=== PATIENT | female | born 1940 | race Caucasian/White ===

== ENCOUNTER 2016-07-22 08:00 | Outpatient (RCR) | payer MEDICARE ==
[~2016-07-22 08:00] MED LIST: ESTR0.5T; FLEC50TA PO; LEVO100T7
== END 2016-10-20 | disposition home or self-care (01) ==
LOC: CARD 08:00
PROVIDERS: ATTEND Internal Medicine
DX: R00.2 Palpitations (principal)
CPT/HCPCS: 93225; 93226

== ENCOUNTER 2016-07-22 15:23 | Outpatient (RCR) | payer MEDICARE | END 2016-10-20 | disposition home or self-care (01) | LOC: CARD 15:23 | PROVIDERS: ATTEND Internal Medicine | DX: R00.2 Palpitations (principal) ==

== ENCOUNTER 2016-10-25 16:44 | Emergency (ER) | payer MEDICARE ==
[~2016-10-25] VITALS: Ht 160 cm; Wt 59.0 kg
--- NOTE | 2016-10-25 17:16 | ED Chest Pain ---
General Chief Complaint: Chest Pain Stated Complaint: CHEST DISCOMFORT X4 DAYS Nursing Triage Note: CHEST PAIN X4 DAYS. STATES SHE THINKS IT MIGHT BE INDIGESTION OR RELATED TO HER NEW MEDS. Nursing Sepsis Screen: No Definite Risk Source: patient Exam Limitations: no limitations History of Present Illness Time seen by provider: 17:13 Initial Comments Patient presents the ER by private conveyance that she complaint of several days now progressively worsening midline substernal chest pain that is quite severe and intermittent. It is not presently happening but she spoke with her doctor who recommended she come to the ER. She is recently diagnosed a few weeks ago with atrial fibrillation and started on eliquis but she could only tolerate about 3-4 days of that and was switched over to pradaxa. She used to be on aspirin but that was stopped when she was switched to eliquis. Patient says sometimes her breath taken away but she is not short of breath nauseated having any chills numbness in her neck arms shoulder or face. She does have chronic numbness in her left thumb but comes and goes. She is associating her chest pain with possible indigestion however it is nothing in relation to her eating habits. She has not tried taking anything for it. She does not know if lying still makes it go away as it usually goes away on its own. She was recently started on doxycycline by her network operations technician after she had a skin cancer cut off about a week ago. She did not take the doxycycline today. After reading on the Internet now she is convinced the Pradaxa is causing her chest pain. She called discussed this with her quality control assistant and they recommended she come to the ER promptly. Allergies and Home Medications Allergies Coded Allergies: No Known Drug Allergies (Unverified , 05/25/15) Home Medications Estradiol 0.5 Mg Tablet, #90 (Reported) Levothyroxine Sodium 100 Mcg Tablet, #90 (Reported) Review of Systems Constitutional: No chills, No diaphoresis, No fever Respiratory: Denies Cough, Shortness of Air, Denies Wheezing Cardiovascular: See HPI, Chest Pain, Denies Edema, Denies Irregular Heart Rate Gastrointestinal: Denies Abdominal Pain, Denies Diarrhea, Denies Nausea, Denies Vomiting Genitourinary: Denies Burning Musculoskeletal: No back pain, No joint pain Skin: No pruritus, No rash Psychiatric/Neurological: Denies Headache, Denies Numbness, Denies Paresthesia Past Kusuanu-Sltanv-Kpqmti Hx Patient Social History Alcohol Use: Occasionally Uses Recreational Drug Use: No Smoking Status: Never a Smoker Recent Foreign Travel: No Contact w/Someone Who Travel: No Recent Infectious Disease Expo: No Surgeries HX Surgeries: Yes Surgeries: Breast, Cardiac, Hysterectomy, Oophorectomy, Orthopedic, Thyroidectomy, Tubal Ligation Respiratory Hx Respiratory Disorders: No Cardiovascular Hx Cardiac Disorders: Yes (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) Cardiac Disorders: Atrial Fibrillation, Hypertension, Irregular Heartbeat, Palpitations Neurological Hx Neurological Disorders: No 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, 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 Genitourinary Hx Genitourinary Disorders: No Gastrointestinal Hx Gastrointestinal Disorders: No Musculoskeletal Hx Musculoskeletal Disorders: Yes Musculoskeletal Disorders: Rheumatoid Arthritis Endocrine Hx Endocrine Disorders: Yes (S/P PARTIAL THYROIDECTOMY FOR BENIGN GROWTH) Endocrine Disorders: Hypothyroidsim HEENT HX ENT Disorders: No Cancer Hx Cancer: No Psychosocial Hx Psychiatric Problems: No Integumentary HX Skin/Integumentary Disorder: No Blood Transfusions Hx Blood Disorders: No Physical Exam Vital Signs Vital Sign - Last 12Hours 10/25/16 16:45 Temp 98.0 Pulse 54 Resp 16 B/P (MAP) 141/90 Pulse Ox 98 Capillary Refill : Less Than 3 Seconds General Appearance: No Apparent Distress, WD/WN HEENT: PERRL/EOMI, Pharynx Normal Neck: Full Range of Motion, Supple Respiratory: Chest Non Tender, Lungs Clear, Normal Breath Sounds Cardiovascular: Regular Rate, Rhythm, No Edema, No Gallop, No JVD, Normal Peripheral Pulses Gastrointestinal: Normal Bowel Sounds, Non Tender, Soft Extremity: Normal Capillary Refill, No Pedal Edema Neurologic/Psychiatric: Alert, Oriented x3 Skin: Normal Color, Warm/Dry Progress/Results/Core Measures Results/Orders Lab Results Laboratory Tests Test 10/25/16 17:15 Range/Units White Blood Count 5.6 4.3-11.0 10^3/uL Red Blood Count 3.40 L 4.35-5.85 10^6/uL Hemoglobin 12.0 11.5-16.0 G/DL Hematocrit 36 35-52 % Mean Corpuscular Volume 104 H 80-99 FL Mean Corpuscular Hemoglobin 35 H 25-34 PG Mean Corpuscular Hemoglobin Concent 34 32-36 G/DL Red Cell Distribution Width 14.3 10.0-14.5 % Platelet Count 214 130-400 10^3/uL Mean Platelet Volume 10.5 H 7.4-10.4 FL Neutrophils (%) (Auto) 72 42-75 % Lymphocytes (%) (Auto) 17 12-44 % Monocytes (%) (Auto) 6 0-12 % Eosinophils (%) (Auto) 4 0-10 % Basophils (%) (Auto) 1 0-10 % Neutrophils # (Auto) 4.0 1.8-7.8 X 10^3 Lymphocytes # (Auto) 1.0 1.0-4.0 X 10^3 Monocytes # (Auto) 0.3 0.0-1.0 X 10^3 Eosinophils # (Auto) 0.2 0.0-0.3 10^3/uL Basophils # (Auto) 0.0 0.0-0.1 10^3/uL Prothrombin Time 16.4 H 12.2-14.7 SEC INR Comment 1.4 0.8-1.4 Activated Partial Thromboplast Time 45 H 24-35 SEC Sodium Level 138 135-145 MMOL/L Potassium Level 4.1 3.6-5.0 MMOL/L Chloride Level 105 98-107 MMOL/L Carbon Dioxide Level 27 21-32 MMOL/L Anion Gap 6 5-14 MMOL/L Blood Urea Nitrogen 23 H 7-18 MG/DL Creatinine 0.78 0.60-1.30 MG/DL Estimat Glomerular Filtration Rate > 60 BUN/Creatinine Ratio 29 Glucose Level 93 70-105 MG/DL Calcium Level 8.8 8.5-10.1 MG/DL Magnesium Level 2.0 1.8-2.4 MG/DL Total Bilirubin 0.5 0.1-1.0 MG/DL Aspartate Amino Transf (AST/SGOT) 20 5-34 U/L Alanine Aminotransferase (ALT/SGPT) 22 0-55 U/L Alkaline Phosphatase 80 40-136 U/L Myoglobin 47.5 10.0-92.0 NG/ML Troponin I < 0.30 <0.30 NG/ML Total Protein 6.6 6.4-8.2 GM/DL Albumin 3.9 3.2-4.5 GM/DL Lipase 24 8-78 U/L Thyroid Stimulating Hormone (TSH) 3.60 0.35-4.94 UIU/ML My Orders Orders - TONY GUADARRAMAg Tracing (10/25/16 16:52) Cbc With Automated Diff (10/25/16 17:16) Magnesium (10/25/16 17:16) Chest 1 View, Ap/Pa Only (10/25/16 17:16) Cardiac Profile 1 (10/25/16 17:16) Comprehensive Metabolic Panel (10/25/16 17:16) Myoglobin Serum (10/25/16 17:16) Protime With Inr (10/25/16 17:16) Partial Thromboplastin Time (10/25/16 17:16) O2 (10/25/16 17:16) Monitor-Rhythm Ecg Trace Only (10/25/16 17:16) Lipid Panel (10/26/16 06:00) Aspirin Chewable Tablet (Baby Aspirin Ch (10/25/16 17:30) Rx-Nitroglycerin Sl Tabs (Rx-Nitrostat S (10/25/16 17:30) Saline Lock/Iv-Start (10/25/16 17:16) Lipase (10/25/16 17:16) Thyroid Stimulating Hormone (10/25/16 17:16) Medications Given in ED Current Medications Medications Dose Ordered Sig/Aylin Route Start Time Stop Time Status Last Admin Dose Admin Aspirin 324 mg ONCE ONCE PO 10/25/16 17:30 10/25/16 17:31 DC 10/25/16 17:21 324 MG Vital Signs/I&O Vital Sign - Last 12Hours 10/25/16 16:45 Temp 98.0 Pulse 54 Resp 16 B/P (MAP) 141/90 Pulse Ox 98 Blood Pressure Mean: 107 Progress Note : Time: 18:32 Progress Note Days of progressive chest pain with a negative troponin and EKG. Follow up next week with her quality control assistant and pcp ECG Initial ECG Impression Date: Oct 25, 2016 Initial ECG Impression Time: 16:59 Initial ECG Rate: 50 Initial ECG Rhythm: Normal Sinus Initial ECG Intervals: Normal Initial ECG Impression: Normal, Nonspecific Changes (incomplete right bundle- branch block) Initial ECG Comparisson: No Previous ECG Available Comment No T-wave elevation or depression. Diagnostic Imaging Diagonstic Imaging: Xray Plain Films/CT/US/NM/MRI: chest Comments No acute cardiopulmonary processes noted. NAME: ANANTH BEEBE REC#: [id number] PT STATUS: REG ER : 1940 PHYSICIAN: TONY GUADARRAMA MD ADMIT DATE: 10/25/16/ER Draft Date of Exam:10/25/16 CHEST 1 VIEW, AP/PA ONLY INDICATION: Chest discomfort. COMPARISON: 05/25/2015. FINDINGS: Chronic interstitial lung disease is again noted. There are no acute infiltrates. The heart remains mildly enlarged. There is no pulmonary edema. No pleural effusion. No hilar adenopathy. No pneumothorax. IMPRESSION: 1. Cardiomegaly with no evidence of congestive failure. 2. Mild chronic interstitial lung disease with no acute infiltrates. Dictated on workstation # [id number] Dict: 10/25/16 1735 Trans: 10/25/168 AS6 [id number] Interpreted by: JAMEY CHUN MD Electronically signed by: Reviewed: Reviewed by Me Departure Impression Impression: Primary Impression: Chest pain Qualified Codes: R07.9 - Chest pain, unspecified Disposition: 01 HOME, SELF-CARE Condition: Stable Departure-Patient Inst. Decision time for Depature: 18:33 Referrals: COURTNEY ALBERTO MD (PCP/Family) Primary Care Physician Patient Instructions: Chest Pain That Is Not Caused by the Heart (DC) Add. Discharge Instructions: Please go home to continue use her same medicines as prescribed by your other doctors and plan on following up with your quality control assistant by calling his clinic Friday morning. Follow up with your PCP as needed. If you're having any new or worsening symptoms such as new characterized chest pain, shortness of breath, nausea or other worrisome symptoms please return to the ER immediately. All discharge instructions reviewed with patient and/or family. Voiced understanding. Copy Copies To 1: COURTNEY ALBERTO MD, TITUS J Oct 25, 2016 17:16
[2016-10-25 17:25] LABS: BASOPHILS % (AUTO) 1 % (0-10); EOSINOPHILS # (AUTO) 0.2 10^3/uL (0.0-0.3); EOSINOPHILS % (AUTO) 4 % (0-10); LYMPHOCYTES % (AUTO) 17 % (12-44); MEAN CORPUSCULAR HEMOGLOBIN 35 PG (25-34); MEAN CORPUSCULAR HGB CONC 34 G/DL (32-36); MEAN CORPUSCULAR VOLUME 104 FL (80-99); MEAN PLATELET VOLUME 10.5 FL (7.4-10.4); MONOCYTES # (AUTO) 0.3 X 10^3 (0.0-1.0); MONOCYTES % (AUTO) 6 % (0-12); NEUTROPHILS % (AUTO) 72 % (42-75); PLATELET COUNT 214 10^3/uL (130-400); RED CELL DISTRIBUTION WIDTH 14.3 % (10.0-14.5); WHITE BLOOD COUNT 5.6 10^3/uL (4.3-11.0)
[2016-10-25] MEDS ORDERED: RX-NITROGLYCERIN 0.4 MG TAB BTL 25'S SL PRN (17:30)
[2016-10-25] MEDS ORDERED: ASPIRIN 81 MG CHEW (CHILDREN'S ASA) PO ONE (17:30)
[2016-10-25 17:34] LABS: INR 1.4 (0.8-1.4); PROTHROMBIN TIME PATIENT 16.4 SEC (12.2-14.7)
--- NOTE | 2016-10-25 17:39 | Diagnostic Imaging Report ---
INDICATION: Chest discomfort. COMPARISON: 05/25/2015. FINDINGS: Chronic interstitial lung disease is again noted. There are no acute infiltrates. The heart remains mildly enlarged. There is no pulmonary edema. No pleural effusion. No hilar adenopathy. No pneumothorax. IMPRESSION: 1. Cardiomegaly with no evidence of congestive failure. 2. Mild chronic interstitial lung disease with no acute infiltrates. Dictated by: Dictated on workstation # [id number]
[2016-10-25 17:45] LABS: ALANINE AMINOTRANSFERASE 22 U/L (0-55); ALBUMIN 3.9 GM/DL (3.2-4.5); ANION GAP 6 MMOL/L (5-14); ASPARTATE AMINO TRANSFERASE 20 U/L (5-34); BILIRUBIN,TOTAL 0.5 MG/DL (0.1-1.0); BLOOD UREA NITROGEN 23 MG/DL (7-18); BUN/CREATININE RATIO 29; CALCIUM 8.8 MG/DL (8.5-10.1); CARBON DIOXIDE 27 MMOL/L (21-32); CHLORIDE 105 MMOL/L (98-107); CREATININE SERUM 0.78 MG/DL (0.60-1.30); GFR ESTIMATED > 60; GLUCOSE 93 MG/DL (70-105); LIPASE 24 U/L (8-78); POTASSIUM 4.1 MMOL/L (3.6-5.0); SODIUM 138 MMOL/L (135-145); TOTAL PROTEIN 6.6 GM/DL (6.4-8.2)
[2016-10-25 17:52] LABS: MYOGLOBIN SERUM 47.5 NG/ML (10.0-92.0)
[2016-10-25 18:39] VITALS: BP 127/85
== END 2016-10-25 18:39 | disposition home or self-care (01) ==
LOC: EDUNIT# 16:44 → ER 16:45
DX: R07.2 Precordial pain (principal); I48.91 Unspecified atrial fibrillation; E03.9 Hypothyroidism, unspecified; M06.9 Rheumatoid arthritis, unspecified; I10 Essential (primary) hypertension; Z90.710 Acquired absence of both cervix and uterus; Z98.51 Tubal ligation status; Z98.890 Other specified postprocedural states; Z85.828 Personal history of other malignant neoplasm of skin; Z79.01 Long term (current) use of anticoagulants
CPT/HCPCS: 36415; 71010; 80053; 83690; 83735; 83874; 84443; 84484; 85025; 85610; 85730; 93041

== ENCOUNTER → 2016-12-10 | Outpatient (CLI) | payer MEDICARE | LOC: CARD 08:57 | PROVIDERS: ATTEND Internal Medicine Cardiovascular Disease | DX: I48.0 Paroxysmal atrial fibrillation (principal); I47.1 Supraventricular tachycardia | CPT/HCPCS: 93306; 93351 ==

== ENCOUNTER → 2018-05-05 | Outpatient (CLI) | payer MEDICARE ==
--- NOTE | 2018-05-05 08:56 | Diagnostic Imaging Report ---
EXAM: LUMBAR SPINE - 2-3 VIEWS INDICATION: LOW BACK PAIN, SI JOINT PAIN COMPARISON: None. FINDINGS: There are 5 lumbar type vertebral bodies with tiny riblets at the T12 segment for the purposes of this report. Mild left apex lumbar curvature centered at L2. Alignment is otherwise unremarkable. Moderate to advanced degenerative endplate changes are greatest at L1-L2 and L5-S1. Moderate facet arthropathy is greatest at L5-S1. Vertebral body heights are preserved. No fractures. The visualized sacrum is intact. IMPRESSION: Moderate to advanced spondylotic changes in the lumbar spine as above. No acute radiographic findings. Dictated by: Dictated on workstation # [id number]
--- NOTE | 2018-05-05 10:15 | Diagnostic Imaging Report ---
INDICATION: LOW BACK PAIN, SI JOINT PAIN. TECHNIQUE: Single frontal view of the pelvis. COMPARISON: None FINDINGS: No acute fracture or dislocation is seen on this single view of the pelvis. Alignment appears normal. Joint spaces are preserved. The sacroiliac joints and pubic symphysis are patent. No cortical erosions are seen. IMPRESSION: No acute osseous abnormality is seen in the pelvis. Dictated by: Dictated on workstation # [id number]
== END ==
LOC: RAD 08:23
PROVIDERS: ATTEND Physician Assistant
DX: M47.817 Spondylosis without myelopathy or radiculopathy, lumbosacral region (principal); M53.3 Sacrococcygeal disorders, not elsewhere classified
CPT/HCPCS: 72100; 72170

== ENCOUNTER → 2018-09-29 | Outpatient (CLI) | payer MEDICARE ==
--- NOTE | 2018-09-29 13:33 | Diagnostic Imaging Report ---
INDICATION: Hand pain. FINDINGS: The bones are osteopenic. There are moderate osteoarthritic changes of the radiocarpal joint and midcarpal joints bilaterally. There is no fracture or dislocation. There are no marginal erosions. The DIP and PIP joint spaces are relatively well maintained. There is some mild subluxation along the metacarpophalangeal joints. IMPRESSION: Nonspecific subluxation along the metacarpophalangeal joints likely chronic. Marked degenerative changes of the radiocarpal joint and midcarpal joints. Osteopenia however no fracture or dislocation. Additionally, there are no marginal erosions. Dictated by: Dictated on workstation # [id number]
== END ==
LOC: RAD 12:54
PROVIDERS: ATTEND Internal Medicine Rheumatology
DX: S63.219A Subluxation of metacarpophalangeal joint of unspecified finger, initial encounter (principal); M19.041 Primary osteoarthritis, right hand; M19.042 Primary osteoarthritis, left hand; M85.849 Other specified disorders of bone density and structure, unspecified hand; M05.79 Rheumatoid arthritis with rheumatoid factor of multiple sites without organ or systems involvement

== ENCOUNTER 2018-12-03 10:46 | Outpatient (RCR) | payer MEDICARE | END 2018-12-09 14:14 | disposition home or self-care (01) | DX: M06.9 Rheumatoid arthritis, unspecified (principal) ==

== ENCOUNTER 2020-06-03 13:59 | Emergency (ER) | payer MEDICARE ==
[~2020-06-03] VITALS: Ht 167.7 cm; Wt 51.7 kg
--- NOTE | 2020-06-03 14:27 | ED Cardiac General ---
History of Present Illness General Chief Complaint: Cardiac/General Problems Stated Complaint: A-FIB EPISODE Nursing Triage Note: PT AMBULATE TO ROOM 05 WITH C/O AFIB STARTING THIS AM. PT REPORTS HX OF AFIB. PT DENIES CHEST PAIN. PT REPORTS BEING "WORE OUT". Source: patient Exam Limitations: no limitations History of Present Illness Date Seen by Provider: Jun 03, 2020 Time Seen by Provider: 14:01 Initial Comments Patient arrives ER by private conveyance from home with chief complaint that since about 9:00 this morning she started having some of tiredness a little bit of shortness of air. No chest pain. She has an negro on her phone and told her the might be atrial fibrillation. She has a history of atrial fibrillation on Pradaxa and denies a history of heart attack or stent. She follows with Dr. Fabian at [facility] and primary care by Dr. Castro. She is not having any nausea sweats chills or exertional dyspnea. She says she has just felt tired all morning. Allergies and Home Medications Allergies Coded Allergies: No Known Drug Allergies (Unverified , 05/25/15) Patient Home Medication List Home Medication List Reviewed: Yes Review of Systems Review of Systems Constitutional: No chills, No diaphoresis EENTM: No Blurred Vision, No Double Vision Respiratory: Denies Cough; Shortness of Air; Denies SOA With Exertion Cardiovascular: Denies Chest Pain, Denies Lightheadedness Gastrointestinal: Denies Constipated, Denies Diarrhea, Denies Nausea Genitourinary: Denies Burning, Denies Discharge, Denies Drainage Musculoskeletal: No back pain, No joint pain All Other Systems Reviewed Negative Unless Noted: Yes Past Pbmzwgk-Qpttoc-Rqhmhz Hx Patient Social History Alcohol Use: Regular Use Number of Drinks Today: Alcohol Beverage of Choice: Wine Smoking Status: Never a Smoker Recent Infectious Disease Expo: No Past Medical History Surgeries: Yes Breast, Cardiac, Hysterectomy, Oophorectomy, Orthopedic, Thyroidectomy, Tubal Ligation Respiratory: No Cardiac: Yes (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) Atrial Fibrillation, Hypertension, Irregular Heartbeat, Palpitations Neurological: No 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 oz. 58.403457bo; 18.00 BMI Method:Estimated General Appearance: No Apparent Distress, WD/WN HEENT: PERRL/EOMI, Pharynx Normal, Moist Mucous Membranes Neck: Full Range of Motion, Normal Inspection Respiratory: Chest Non Tender, Lungs Clear, Normal Breath Sounds, No Accessory Muscle Use, No Respiratory Distress Cardiovascular: Regular Rate, Rhythm, No Edema, No Gallop, No JVD, No Murmur, Normal Peripheral Pulses Extremity: Normal Capillary Refill, Normal Inspection Neurologic/Psychiatric: Alert, Oriented x3 Skin: Normal Color, Warm/Dry Progress/Results/Core Measures Results/Orders Lab Results Laboratory Tests Test 06/03/20 14:23 06/03/20 16:07 Range/Units White Blood Count 5.0 4.3-11.0 10^3/uL Red Blood Count 4.34 3.80-5.11 10^6/uL Hemoglobin 14.4 11.5-16.0 g/dL Hematocrit 42 35-52 % Mean Corpuscular Volume 98 80-99 fL Mean Corpuscular Hemoglobin 33 25-34 pg Mean Corpuscular Hemoglobin Concent 34 32-36 g/dL Red Cell Distribution Width 11.8 10.0-14.5 % Platelet Count 226 130-400 10^3/uL Mean Platelet Volume 9.7 9.0-12.2 fL Immature Granulocyte % (Auto) 0 % Neutrophils (%) (Auto) 58 42-75 % Lymphocytes (%) (Auto) 24 12-44 % Monocytes (%) (Auto) 9 0-12 % Eosinophils (%) (Auto) 8 0-10 % Basophils (%) (Auto) 1 0-10 % Neutrophils # (Auto) 2.9 1.8-7.8 10^3/uL Lymphocytes # (Auto) 1.2 1.0-4.0 10^3/uL Monocytes # (Auto) 0.5 0.0-1.0 10^3/uL Eosinophils # (Auto) 0.4 H 0.0-0.3 10^3/uL Basophils # (Auto) 0.0 0.0-0.1 10^3/uL Immature Granulocyte # (Auto) 0.0 0.0-0.1 10^3/uL Prothrombin Time 17.6 H 12.2-14.7 SEC INR Comment 1.4 0.8-1.4 Activated Partial Thromboplast Time 55 H 24-35 SEC Sodium Level 139 135-145 MMOL/L Potassium Level 4.1 3.6-5.0 MMOL/L Chloride Level 106 98-107 MMOL/L Carbon Dioxide Level 21 21-32 MMOL/L Anion Gap 12 5-14 MMOL/L Blood Urea Nitrogen 18 7-18 MG/DL Creatinine 0.82 0.60-1.30 MG/DL Estimat Glomerular Filtration Rate > 60 BUN/Creatinine Ratio 22 Glucose Level 147 H 70-105 MG/DL Calcium Level 8.4 L 8.5-10.1 MG/DL Corrected Calcium 8.4 L 8.5-10.1 MG/DL Magnesium Level 3.2 H 1.6-2.4 MG/DL Total Bilirubin 0.2 0.1-1.0 MG/DL Aspartate Amino Transf (AST/SGOT) 26 5-34 U/L Alanine Aminotransferase (ALT/SGPT) 23 0-55 U/L Alkaline Phosphatase 109 40-136 U/L Myoglobin 29.2 10.0-92.0 NG/ML Troponin I < 0.028 < 0.028 <0.028 NG/ML Total Protein 7.2 6.4-8.2 GM/DL Albumin 4.0 3.2-4.5 GM/DL My Orders Orders - CHIARA,TONY J Cbc With Automated Diff (06/03/20 14:19) Magnesium (06/03/20 14:19) Chest 1 View, Ap/Pa Only (06/03/20 14:19) Ekg Tracing (06/03/20 14:19) Comprehensive Metabolic Panel (06/03/20 14:19) Myoglobin Serum (06/03/20 14:19) Protime With Inr (06/03/20 14:19) Partial Thromboplastin Time (06/03/20 14:19) O2 (06/03/20 14:19) Monitor-Rhythm Ecg Trace Only (06/03/20 14:19) Lipid Panel (06/04/20 06:00) Ed Iv/Invasive Line Start (06/03/20 14:19) Troponin I (06/03/20 14:19) Aspirin Chewable Tablet (Baby Aspirin Ch (06/03/20 14:30) Troponin I (06/03/20 16:00) Medications Given in ED Current Medications Medications Dose Ordered Sig/Aylin Route Start Time Stop Time Status Last Admin Dose Admin Aspirin 324 mg ONCE ONCE PO 06/03/20 14:30 06/03/20 14:31 DC 06/03/20 14:26 324 MG Vital Signs/I&O 06/03/20 14:06 Temp 36.0 Pulse 82 Resp 18 B/P (MAP) 111/83 (92) O2 Delivery Room Air Blood Pressure Mean: 92 Progress Progress Note : Time: 14:28 Progress Note She is not in any kind of tachyarrhythmia. Heart rate around the 80s. She is in an atrial fibrillation. It is reasonable to consider an atypical angina so we will give her some aspirin to chew and swallow and to a serial troponin in 2 hours which will be greater than 6 hours after start of symptoms. Initial ECG Impression Date: Jun 03, 2020 Initial ECG Impression Time: 14:11 Initial ECG Rate: 81 Initial ECG Rhythm: A Fib/Flutter Initial ECG Intervals: QT (429) Initial ECG Impression: Atrial Fibrillation Comment Atrial fibrillation without rapid ventricular response. No clinically relevant ST elevation or depression. Diagnostic Imaging Diagonstic Imaging: Xray Plain Films/CT/US/NM/MRI: chest Comments NAME: ANANTH BEEBE [facility] REC#: [id number] PT STATUS: REG ER : 1940 PHYSICIAN: TONY GUADARRAMA MD ADMIT DATE: 06/03/20/ER Draft Date of Exam:06/03/20 CHEST 1 VIEW, AP/PA ONLY Portable erect AP chest at 2:37. Indication: Chest pain The heart size is within normal limits and stable when compared to 10/25/2016. The lungs remain clear. There is still no sign of failure, pneumonia or pleural effusion. The chronic pulmonary changes involving the lung apices seen previously are again evident and no different. The mediastinum is not widened. The osseous structures are intact. Impression: There is no evidence for active disease. Dictated on workstation # [id number] Dict: 06/03/20 1444 Trans: 06/03/20 1454 CV [id number] Interpreted by: MICHAEL WATTS MD Electronically signed by: Reviewed: Reviewed by Me Consults : Consulting Physician: Alpa DUNAWAY MD Consults Notes Discussed the case with cardiology and he recommends rule out troponin. If this is okay he would have her follow-up with cardiology outpatient. Departure Impression Primary Impression: Atrial fibrillation Qualified Codes: I48.0 - Paroxysmal atrial fibrillation Additional Impression: Malaise Disposition: HOME, SELF-CARE Condition: Stable Departure-Patient Inst. Decision time for Depature: 16:48 Referrals: COURTNEY CASTRO MD (PCP/Family) Primary Care Physician Patient Instructions: Medicines for Atrial Fibrillation, Atrial Fibrillation, Generalized Weakness Add. Discharge Instructions: Friday morning call your director information security Dr. Fabian and request follow-up appointment. Return to the nearest ER promptly if you experience chest pain, intractable nausea or other worrisome symptoms. Continue taking your medications as prescribed. All discharge instructions reviewed with patient and/or family. Voiced understanding. TONY GUADARRAMA Jun 03, 2020 14:27
[2020-06-03] MEDS ORDERED: ASPIRIN 81 MG CHEW (CHILDREN'S ASA) PO ONE (14:30)
[2020-06-03 14:31] LABS: BASOPHILS % (AUTO) 1 % (0-10); EOSINOPHILS # (AUTO) 0.4 10^3/uL (0.0-0.3); EOSINOPHILS % (AUTO) 8 % (0-10); HEMATOCRIT 42 % (35-52); HEMOGLOBIN 14.4 g/dL (11.5-16.0); LYMPHOCYTES # (AUTO) 1.2 10^3/uL (1.0-4.0); LYMPHOCYTES % (AUTO) 24 % (12-44); MEAN CORPUSCULAR HEMOGLOBIN 33 pg (25-34); MEAN CORPUSCULAR HGB CONC 34 g/dL (32-36); MEAN CORPUSCULAR VOLUME 98 fL (80-99); MEAN PLATELET VOLUME 9.7 fL (9.0-12.2); MONOCYTES # (AUTO) 0.5 10^3/uL (0.0-1.0); MONOCYTES % (AUTO) 9 % (0-12); NEUTROPHILS # (AUTO) 2.9 10^3/uL (1.8-7.8); NEUTROPHILS % (AUTO) 58 % (42-75); PLATELET COUNT 226 10^3/uL (130-400)
[2020-06-03 14:43] LABS: INR 1.4 (0.8-1.4); PROTHROMBIN TIME PATIENT 17.6 SEC (12.2-14.7)
[2020-06-03 14:52] LABS: ALANINE AMINOTRANSFERASE 23 U/L (0-55); ALKALINE PHOSPHATASE 109 U/L (40-136); BILIRUBIN,TOTAL 0.2 MG/DL (0.1-1.0); BUN/CREATININE RATIO 22; CALCIUM 8.4 MG/DL (8.5-10.1); CARBON DIOXIDE 21 MMOL/L (21-32); CHLORIDE 106 MMOL/L (98-107); CREATININE SERUM 0.82 MG/DL (0.60-1.30); GFR ESTIMATED > 60; GLUCOSE 147 MG/DL (70-105); MAGNESIUM 3.2 MG/DL (1.6-2.4); POTASSIUM 4.1 MMOL/L (3.6-5.0); SODIUM 139 MMOL/L (135-145); TOTAL PROTEIN 7.2 GM/DL (6.4-8.2)
--- NOTE | 2020-06-03 14:56 | Diagnostic Imaging Report ---
Portable erect AP chest at 2:37. Indication: Chest pain The heart size is within normal limits and stable when compared to 10/25/2016. The lungs remain clear. There is still no sign of failure, pneumonia or pleural effusion. The chronic pulmonary changes involving the lung apices seen previously are again evident and no different. The mediastinum is not widened. The osseous structures are intact. Impression: There is no evidence for active disease. Dictated by: Dictated on workstation # [id number]
[2020-06-03 17:02] VITALS: BP 97/63
== END 2020-06-03 17:02 | disposition home or self-care (01) ==
LOC: EDUNIT# 13:59 → ER 14:00
DX: I48.91 Unspecified atrial fibrillation (principal); R53.81 Other malaise
CPT/HCPCS: 36415; 71045; 80053; 83735; 83874; 84484; 85025; 85610; 85730; 93005; 93041

== ENCOUNTER 2020-08-01 23:35 | Emergency (ER) | payer MEDICARE ==
[~2020-08-01] VITALS: Ht 167.7 cm; Wt 50.8 kg
[2020-08-02 00:03] LABS: BASOPHILS % (AUTO) 1 % (0-10); EOSINOPHILS # (AUTO) 0.3 10^3/uL (0.0-0.3); EOSINOPHILS % (AUTO) 6 % (0-10); HEMATOCRIT 42 % (35-52); HEMOGLOBIN 13.9 g/dL (11.5-16.0); LYMPHOCYTES # (AUTO) 1.6 10^3/uL (1.0-4.0); LYMPHOCYTES % (AUTO) 32 % (12-44); MEAN CORPUSCULAR HEMOGLOBIN 33 pg (25-34); MEAN CORPUSCULAR HGB CONC 33 g/dL (32-36); MEAN CORPUSCULAR VOLUME 99 fL (80-99); MEAN PLATELET VOLUME 9.6 fL (9.0-12.2); MONOCYTES # (AUTO) 0.4 10^3/uL (0.0-1.0); MONOCYTES % (AUTO) 8 % (0-12); NEUTROPHILS # (AUTO) 2.7 10^3/uL (1.8-7.8); NEUTROPHILS % (AUTO) 54 % (42-75); PLATELET COUNT 199 10^3/uL (130-400); WHITE BLOOD COUNT 4.9 10^3/uL (4.3-11.0)
[2020-08-02 00:13] LABS: ALBUMIN 4.3 GM/DL (3.2-4.5); CHLORIDE 104 MMOL/L (98-107); POTASSIUM 3.7 MMOL/L (3.6-5.0); SODIUM 139 MMOL/L (135-145)
[2020-08-02 00:15] LABS: CALCIUM 8.5 MG/DL (8.5-10.1)
[2020-08-02 00:16] LABS: GLUCOSE 103 MG/DL (70-105); TOTAL PROTEIN 7.6 GM/DL (6.4-8.2)
[2020-08-02 00:17] LABS: CARBON DIOXIDE 23 MMOL/L (21-32)
[2020-08-02 00:18] LABS: BILIRUBIN,TOTAL 0.2 MG/DL (0.1-1.0)
[2020-08-02 00:19] LABS: ALKALINE PHOSPHATASE 104 U/L (40-136); CREATININE SERUM 0.78 MG/DL (0.60-1.30); GFR ESTIMATED > 60
[2020-08-02 00:20] LABS: INR 1.2 (0.8-1.4); PROTHROMBIN TIME PATIENT 15.5 SEC (12.2-14.7)
[2020-08-02 00:21] LABS: BUN/CREATININE RATIO 28
[2020-08-02 00:22] LABS: ALANINE AMINOTRANSFERASE 24 U/L (0-55); MAGNESIUM 2.1 MG/DL (1.6-2.4)
--- NOTE | 2020-08-02 02:38 | ED Cardiac General ---
History of Present Illness General Chief Complaint: Cardiac/General Problems Stated Complaint: A-FIB Nursing Triage Note: PRESENTS TO ROOM #2 VIA POV W/CO PALPITATIONS. STATES AT 2210 SHE BEGAN TO EXPERIENCE PALPITATIONS AND HER PHONE ALARMED HER THAT SHE WAS IN A-FIB. DENIES CHEST PAIN, DISCOMFORT OR SOA. Source: patient, old records Exam Limitations: no limitations History of Present Illness Date Seen by Provider: August 01, 2020 Time Seen by Provider: 23:45 Initial Comments This 79-year-old woman with known history of paroxysmal atrial fibrillation p resents to the emergency room with complaints of palpitations that started around 22:15. She is concerned that she may be in atrial fibrillation again. She is anticoagulated on Pradaxa. She expresses concern that she does not understand when she should be seen for return of atrial fibrillation and when she should simply follow-up as an outpatient. She denies any chest pain or s hortness of breath. She has a scheduled follow-up with her log carrier operator, Dr. Frederick, in [place] in September. She is seen every 6 months. Patient is confirmed to be in rate controlled atrial fibrillation on EKG and monitor. Allergies and Home Medications Allergies Coded Allergies: No Known Drug Allergies (Unverified , 05/25/15) Patient Home Medication List Home Medication List Reviewed: Yes Review of Systems Review of Systems Constitutional: no symptoms reported EENTM: No Symptoms Reported Respiratory: No Symptoms Reported Cardiovascular: See HPI Gastrointestinal: No Symptoms Reported Genitourinary: No Symptoms Reported Musculoskeletal: no symptoms reported Skin: no symptoms reported Psychiatric/Neurological: No Symptoms Reported Endocrine: No Symptoms Reported Hematologic/Lymphatic: No Symptoms Reported Past Icogogt-Wlxfck-Exrxmw Hx Past Med/Social Hx: Reviewed Nursing Past Med/Soc Hx Patient Social History Alcohol Use: Regular Use Number of Drinks Today: 1 Alcohol Beverage of Choice: Wine Smoking Status: Never a Smoker 2nd Hand Smoke Exposure: No Recent Infectious Disease Expo: No Past Medical History Surgeries: Yes Breast, Cardiac, Hysterectomy, Oophorectomy, Orthopedic, Thyroidectomy, Tubal Ligation Respiratory: No Cardiac: Yes (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) Atrial Fibrillation, Hypertension, Irregular Heartbeat, Palpitations 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 oz. [id number]; 18.00 BMI Method:Estimated General Appearance: No Apparent Distress, WD/WN, Thin HEENT: PERRL/EOMI, Normal ENT Inspection Neck: Normal Inspection; No JVD Respiratory: Lungs Clear, Normal Breath Sounds, No Accessory Muscle Use Cardiovascular: No Edema, No Murmur, Irregularly Irregular Gastrointestinal: Non Tender, Soft; No Distended Extremity: Normal Inspection, No Pedal Edema Neurologic/Psychiatric: Alert, Oriented x3, Normal Mood/Affect Skin: Normal Color, Warm/Dry Progress/Results/Core Measures Results/Orders Lab Results Laboratory Tests Test 08/01/20 23:50 Range/Units White Blood Count 4.9 4.3-11.0 10^3/uL Red Blood Count 4.23 3.80-5.11 10^6/uL Hemoglobin 13.9 11.5-16.0 g/dL Hematocrit 42 35-52 % Mean Corpuscular Volume 99 80-99 fL Mean Corpuscular Hemoglobin 33 25-34 pg Mean Corpuscular Hemoglobin Concent 33 32-36 g/dL Red Cell Distribution Width 11.7 10.0-14.5 % Platelet Count 199 130-400 10^3/uL Mean Platelet Volume 9.6 9.0-12.2 fL Immature Granulocyte % (Auto) 0 % Neutrophils (%) (Auto) 54 42-75 % Lymphocytes (%) (Auto) 32 12-44 % Monocytes (%) (Auto) 8 0-12 % Eosinophils (%) (Auto) 6 0-10 % Basophils (%) (Auto) 1 0-10 % Neutrophils # (Auto) 2.7 1.8-7.8 10^3/uL Lymphocytes # (Auto) 1.6 1.0-4.0 10^3/uL Monocytes # (Auto) 0.4 0.0-1.0 10^3/uL Eosinophils # (Auto) 0.3 0.0-0.3 10^3/uL Basophils # (Auto) 0.0 0.0-0.1 10^3/uL Immature Granulocyte # (Auto) 0.0 0.0-0.1 10^3/uL Prothrombin Time 15.5 H 12.2-14.7 SEC INR Comment 1.2 0.8-1.4 Activated Partial Thromboplast Time 45 H 24-35 SEC Sodium Level 139 135-145 MMOL/L Potassium Level 3.7 3.6-5.0 MMOL/L Chloride Level 104 98-107 MMOL/L Carbon Dioxide Level 23 21-32 MMOL/L Anion Gap 12 5-14 MMOL/L Blood Urea Nitrogen 22 H 7-18 MG/DL Creatinine 0.78 0.60-1.30 MG/DL Estimat Glomerular Filtration Rate > 60 BUN/Creatinine Ratio 28 Glucose Level 103 70-105 MG/DL Calcium Level 8.5 8.5-10.1 MG/DL Corrected Calcium 8.3 L 8.5-10.1 MG/DL Magnesium Level 2.1 1.6-2.4 MG/DL Total Bilirubin 0.2 0.1-1.0 MG/DL Aspartate Amino Transf (AST/SGOT) 31 5-34 U/L Alanine Aminotransferase (ALT/SGPT) 24 0-55 U/L Alkaline Phosphatase 104 40-136 U/L Myoglobin 34.0 10.0-92.0 NG/ML Troponin I < 0.028 <0.028 NG/ML Total Protein 7.6 6.4-8.2 GM/DL Albumin 4.3 3.2-4.5 GM/DL Thyroid Stimulating Hormone (TSH) 2.62 0.35-4.94 UIU/ML Free Thyroxine 1.11 0.70-1.48 NG/DL My Orders Orders - JOSE MARTIN FREITAS MD Cbc With Automated Diff (08/01/20 23:45) Magnesium (08/01/20 23:45) Chest 1 View, Ap/Pa Only (08/01/20 23:45) Comprehensive Metabolic Panel (08/01/20 23:45) Myoglobin Serum (08/01/20 23:45) Protime With Inr (08/01/20 23:45) Partial Thromboplastin Time (08/01/20 23:45) O2 (08/01/20 23:45) Monitor-Rhythm Ecg Trace Only (08/01/20 23:45) Ed Iv/Invasive Line Start (08/01/20 23:45) Troponin I (08/01/20 23:45) Thyroid Stimulating Hormone (08/02/20 02:24) Free T4 (Free Thyroxine) (08/02/20 02:24) Ekg Tracing (08/01/20 23:50) Vital Signs/I&O 08/01/20 08/02/20 23:42 02:45 Temp 36.9 36.9 Pulse 80 78 Resp 17 16 B/P (MAP) 146/93 (110) 122/68 (110) Pulse Ox 98 98 O2 Delivery Room Air Room Air Blood Pressure Mean: 110 Progress Progress Note : Progress Note EKG demonstrated atrial fibrillation. Rate remained controlled throughout her ER visit. Other than palpitations, she was asymptomatic. Labs were unremarkable. I reviewed with patient symptoms for which she should return to the emergency room. She expressed understanding and questions were answered. See discharge instructions for further discussion. Initial ECG Impression Date: August 01, 2020 Initial ECG Impression Time: 23:50 Initial ECG Rate: 83 Initial ECG Rhythm: A Fib/Flutter Initial ECG Impression: Atrial Fibrillation Comment Rate controlled atrial fibrillation with no ST elevation or depression. No abnormal intervals or axis deviation. Diagnostic Imaging Diagonstic Imaging: Xray Plain Films/CT/US/NM/MRI: chest Comments Chest x-ray viewed by me. Report below. NAME: [facility] REC#: [id number] PT STATUS: DEP ER : 1940 PHYSICIAN: JOSE MARTIN FREITAS MD ADMIT DATE: 08/01/20/ER Signed Date of Exam:08/01/20 CHEST 1 VIEW, AP/PA ONLY INDICATION: Chest pain Portable chest 12:04 AM Heart size and pulmonary vascularity are normal. Lungs are clear. There are no effusions or pneumothoraces. IMPRESSION: Negative chest Dictated by: Dictated on workstation # [id number] Dict: 08/02/20 0518 Trans: 08/02/20 1129 [place] [id number] Interpreted by: ANDREW HUDSON MD Electronically signed by: ANDREW HUDSON MD 08/02/20 1129 Departure Impression Primary Impression: Paroxysmal atrial fibrillation Additional Impressions: Palpitations Hypothyroidism Qualified Codes: E03.9 - Hypothyroidism, unspecified Disposition: 01 HOME, SELF-CARE Condition: Stable Departure-Patient Inst. Decision time for Depature: 02:36 Referrals: COURTNEY ALBERTO MD (PCP/Family) Primary Care Physician Patient Instructions: Atrial Fibrillation Add. Discharge Instructions: Continue taking your medications as prescribed. Please contact your log carrier operator's office later today to inform them you are back in atrial fibrillation and to seek further guidance. Return to the emergency room if you have symptoms of cardiac instability which might include chest pain, shortness of breath, lightheadedness, vomiting, etc. Also return to the emergency room if you note your pulse to be consistently less than 50 bpm or faster than 110 bpm at rest. Follow-up on your thyroid studies that were ordered in the ER and discussed with Dr. Alberto. Call with questions or concerns. Return to the ER if you have any other urgent health concerns. All discharge instructions reviewed with patient and/or family. Voiced understanding. Copy Copies To 1: COURTNEY ALBERTO MD, JOSHUA T MD August 02, 2020 02:38
[2020-08-02 02:45] VITALS: BP 122/68
[2020-08-02 03:15] LABS: FREE T4 (FREE THYROXINE) 1.11 NG/DL (0.70-1.48)
--- NOTE | 2020-08-02 05:22 | Diagnostic Imaging Report ---
INDICATION: Chest pain Portable chest 12:04 AM Heart size and pulmonary vascularity are normal. Lungs are clear. There are no effusions or pneumothoraces. IMPRESSION: Negative chest Dictated by: Dictated on workstation # [id number]
== END 2020-08-02 02:45 | disposition home or self-care (01) ==
LOC: EDUNIT# 23:35 → ER 23:37
DX: I48.0 Paroxysmal atrial fibrillation (principal); R00.2 Palpitations; E03.9 Hypothyroidism, unspecified; I10 Essential (primary) hypertension; Z79.890 Hormone replacement therapy; Z79.01 Long term (current) use of anticoagulants; Z79.899 Other long term (current) drug therapy
CPT/HCPCS: 36415; 71045; 80053; 83735; 83874; 84439; 84443; 84484; 85025; 85610; 85730; 93005; 93041

== ENCOUNTER 2021-02-13 16:13 | Outpatient (RCR) | payer MEDICARE | END 2021-03-01 | disposition home or self-care (01) | PROVIDERS: ATTEND Internal Medicine | DX: R32 Unspecified urinary incontinence (principal) ==

== ENCOUNTER 2021-08-04 21:41 | Emergency (ER) | payer MEDICARE ==
[~2021-08-04] VITALS: Ht 167.7 cm; Wt 50.2 kg
[2021-08-04 22:33] LABS: BASOPHILS % (AUTO) 0 % (0-10); EOSINOPHILS % (AUTO) 0 % (0-10); HEMATOCRIT 41 % (35-52); LYMPHOCYTES # (AUTO) 1.6 10^3/uL (1.0-4.0); LYMPHOCYTES % (AUTO) 24 % (12-44); MEAN CORPUSCULAR HEMOGLOBIN 35 pg (25-34); MEAN CORPUSCULAR HGB CONC 34 g/dL (32-36); MEAN CORPUSCULAR VOLUME 102 fL (80-99); MEAN PLATELET VOLUME 9.8 fL (9.0-12.2); MONOCYTES # (AUTO) 0.4 10^3/uL (0.0-1.0); MONOCYTES % (AUTO) 6 % (0-12); NEUTROPHILS # (AUTO) 4.6 10^3/uL (1.8-7.8); NEUTROPHILS % (AUTO) 69 % (42-75); PLATELET COUNT 261 10^3/uL (130-400); WHITE BLOOD COUNT 6.7 10^3/uL (4.3-11.0)
[2021-08-04 22:36] LABS: BILIRUBIN,URINE NEGATIVE (NEGATIVE); CLARITY,URINE CLEAR; COLOR,URINE YELLOW; GLUCOSE, URINE (UA) NEGATIVE (NEGATIVE); KETONES,URINE NEGATIVE (NEGATIVE); LEUKOCYTE ESTERASE ,URINE NEGATIVE (NEGATIVE); NITRITE,URINE NEGATIVE (NEGATIVE); PROTEIN,URINE NEGATIVE (NEGATIVE)
[2021-08-04 22:40] LABS: CALCIUM 9.1 MG/DL (8.5-10.1); CREATININE SERUM 0.77 MG/DL (0.60-1.30); POTASSIUM 3.8 MMOL/L (3.6-5.0)
[2021-08-04 22:43] LABS: BACTERIA,URINE NEGATIVE /HPF; SQUAMOUS EPITHELIAL CELL,UR 0-2 /HPF
[2021-08-04 23:02] LABS: FREE T4 (FREE THYROXINE) 1.13 NG/DL (0.70-1.48)
--- NOTE | 2021-08-04 23:47 | ED Cardiac General ---
History of Present Illness General Chief Complaint: Cardiac/General Problems Stated Complaint: AFIB Nursing Triage Note: PT ARRIVAL TO ER THIS EVENING WITH COMPLAINT OF ATRIAL FIB. PT STATES THAT SHE HAS A MOBILE RAGHAVENDRA ON HER PHONE THAT HAS SHOWN SHE HAS BEEN IN IT SINCE YESTERDAY. PT DENIES CHEST PAIN, SOA, NAUSEA OR OTHER COMPLAINTS. PT STATES THAT SHE JUST DOESN'T FEEL 100% WHEN ATRIAL FIB. PT STATES THAT SHE ALSO TESTED POSITIVE LAST FRIDAY FOR COVID AND HAD ANTIBODIES FRIDAY. Source: patient Exam Limitations: no limitations History of Present Illness Date Seen by Provider: August 04, 2021 Time Seen by Provider: 21:59 Initial Comments This 81-year-old woman presents to the emergency room with complaints of palpitations she has been experiencing increasing episodes of atrial fibrillation recently which has her concerned. She was diagnosed with COVID 19 on July 29. She received monoclonal antibody treatment on July 31. She has had some fatigue but denies any other symptoms. She was tested because she had a known exposure. She denies any chest pain or shortness of breath. Dr. Fabian is her cloth folder machine in [place]. She has comorbidities of hypothyroidism and rheumatoid arthritis. Allergies and Home Medications Allergies Coded Allergies: No Known Drug Allergies (Unverified , 05/25/15) Patient Home Medication List Home Medication List Reviewed: Yes Estradiol (Estradiol Tablet) 0.5 Mg Tablet, (Reported) Entered as Reported by: LONNIE MURRAY on 03/15/16 6425 Levothyroxine Sodium (Levothyroxine Sodium) 100 Mcg Tablet, (Reported) Entered as Reported by: LONNIE MURRAY on 03/15/16 3853 Review of Systems Review of Systems Constitutional: see HPI EENTM: No Symptoms Reported Respiratory: No Symptoms Reported Cardiovascular: See HPI Gastrointestinal: No Symptoms Reported Genitourinary: No Symptoms Reported Musculoskeletal: no symptoms reported Skin: no symptoms reported Psychiatric/Neurological: No Symptoms Reported Endocrine: No Symptoms Reported Hematologic/Lymphatic: No Symptoms Reported Past Krxymbz-Fxotsi-Mavzsm Hx Patient Social History Tobacco Use?: No Use of E-Cig and/or Vaping dev: No Substance use?: No Alcohol Use?: Yes Alcohol type: Wine Alcohol Frequency: Daily Pt feels they are or have been: No Immunizations Up To Date Influenza Vaccine Up-to-Date: No; Not Current Past Medical History Surgeries: Yes Breast, Cardiac, Hysterectomy, Oophorectomy, Orthopedic, Thyroidectomy, Tubal Ligation Respiratory: No Cardiac: Yes (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) Atrial Fibrillation (Paroxysmal), Hypertension, Irregular Heartbeat, Palpitations 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 oz. 58.228513zh; 17.00 BMI Method:Estimated General Appearance: No Apparent Distress, WD/WN, Thin HEENT: Normal ENT Inspection Neck: Normal Inspection Respiratory: Lungs Clear, Normal Breath Sounds, No Accessory Muscle Use Cardiovascular: No Edema, No Murmur, Irregularly Irregular Gastrointestinal: Non Tender, Soft Extremity: Normal Inspection, No Pedal Edema Neurologic/Psychiatric: Alert, Oriented x3, No Motor/Sensory Deficits, Normal Mood/Affect Skin: Normal Color, Warm/Dry Progress/Results/Core Measures Results/Orders Lab Results Laboratory Tests Test 08/04/21 22:02 08/04/21 22:30 Range/Units White Blood Count 6.7 4.3-11.0 10^3/uL Red Blood Count 4.01 3.80-5.11 10^6/uL Hemoglobin 14.0 11.5-16.0 g/dL Hematocrit 41 35-52 % Mean Corpuscular Volume 102 H 80-99 fL Mean Corpuscular Hemoglobin 35 H 25-34 pg Mean Corpuscular Hemoglobin Concent 34 32-36 g/dL Red Cell Distribution Width 13.0 10.0-14.5 % Platelet Count 261 130-400 10^3/uL Mean Platelet Volume 9.8 9.0-12.2 fL Immature Granulocyte % (Auto) 1 % Neutrophils (%) (Auto) 69 42-75 % Lymphocytes (%) (Auto) 24 12-44 % Monocytes (%) (Auto) 6 0-12 % Eosinophils (%) (Auto) 0 0-10 % Basophils (%) (Auto) 0 0-10 % Neutrophils # (Auto) 4.6 1.8-7.8 10^3/uL Lymphocytes # (Auto) 1.6 1.0-4.0 10^3/uL Monocytes # (Auto) 0.4 0.0-1.0 10^3/uL Eosinophils # (Auto) 0.0 0.0-0.3 10^3/uL Basophils # (Auto) 0.0 0.0-0.1 10^3/uL Immature Granulocyte # (Auto) 0.0 0.0-0.1 10^3/uL Sodium Level 140 135-145 MMOL/L Potassium Level 3.8 3.6-5.0 MMOL/L Chloride Level 102 98-107 MMOL/L Carbon Dioxide Level 21 21-32 MMOL/L Anion Gap 17 H 5-14 MMOL/L Blood Urea Nitrogen 25 H 7-18 MG/DL Creatinine 0.77 0.60-1.30 MG/DL Estimat Glomerular Filtration Rate 78 BUN/Creatinine Ratio 32 Glucose Level 100 70-105 MG/DL Calcium Level 9.1 8.5-10.1 MG/DL Magnesium Level 2.0 1.6-2.4 MG/DL Thyroid Stimulating Hormone (TSH) 2.17 0.35-4.94 UIU/ML Free Thyroxine 1.13 0.70-1.48 NG/DL Urine Color YELLOW Urine Clarity CLEAR Urine pH 6.0 5-9 Urine Specific [place] 1.010 L 1.016-1.022 Urine Protein NEGATIVE NEGATIVE Urine Glucose (UA) NEGATIVE NEGATIVE Urine Ketones NEGATIVE NEGATIVE Urine Nitrite NEGATIVE NEGATIVE Urine Bilirubin NEGATIVE NEGATIVE Urine Urobilinogen 0.2 < = 1.0 MG/DL Urine Leukocyte Esterase NEGATIVE NEGATIVE Urine RBC (Auto) TRACE-I H NEGATIVE Urine RBC NONE /HPF Urine WBC NONE /HPF Urine Squamous Epithelial Cells 0-2 /HPF Urine Renal Epithelial Cells NONE /HPF Urine Crystals NONE /LPF Urine Bacteria NEGATIVE /HPF Urine Casts NONE /LPF Urine Mucus NEGATIVE /LPF Urine Culture Indicated NO My Orders Orders - JOSE MARTIN FREITAS MD Ekg Tracing (08/04/21 21:59) Monitor-Rhythm Ecg Trace Only (08/04/21 21:59) Ed Iv/Invasive Line Start (08/04/21 22:14) Basic Metabolic Panel (08/04/21 22:14) Cbc With Automated Diff (08/04/21 22:14) Magnesium (08/04/21 22:14) Thyroid Stimulating Hormone (08/04/21 22:14) Ua Culture If Indicated (08/04/21 22:14) Free T4 (Free Thyroxine) (08/04/21 22:14) Vital Signs/I&O 08/04/21 08/04/21 22:04 23:57 Temp 36.6 Pulse 66 54 Resp 18 18 B/P (MAP) 159/114 (129) 121/81 Pulse Ox 98 99 O2 Delivery Room Air Room Air Blood Pressure Mean: 129 Progress Progress Note : Progress Note Labs were unremarkable. Patient remained in atrial fibrillation during her ER stay. She was noted to have episodes of significant bradycardia with heart rate as low as 46. She had no symptoms associated with this bradycardia such as lightheadedness or shortness of breath. We discussed her treatment regimen with sotalol. I encouraged her to follow-up with her cloth folder machine on Friday to discuss possible medication changes due to her bradycardia. Return precautions were discussed. See discharge instructions. Initial ECG Impression Date: August 04, 2021 Initial ECG Impression Time: 22:04 Initial ECG Rate: 67 Initial ECG Rhythm: A Fib/Flutter Comment Rate controlled atrial fibrillation with no ST elevation or depression. No abnormal intervals or axis deviation. Departure Impression Primary Impression: Atrial fibrillation Qualified Codes: I48.0 - Paroxysmal atrial fibrillation Additional Impressions: Bradycardia COVID- Disposition: 01 HOME, SELF-CARE Condition: Stable Departure-Patient Inst. Decision time for Depature: 23:45 Referrals: COURTNEY ALBERTO MD (PCP/Family) Primary Care Physician Patient Instructions: COVID-19 ED, Medicines for Atrial Fibrillation Add. Discharge Instructions: Drink plenty of clear liquids to stay well-hydrated. Continue on your current medications until you have opportunity to discuss your medications with your cloth folder machine. Please call your cloth folder machine on Friday to report your symptoms. You should discuss your bradycardia (slow heart rate) as your heart rate was as low as 46 in the emergency room. Return to care if you have worsening symptoms and call with questions or concerns. All discharge instructions reviewed with patient and/or family. Voiced understanding. Copy Copies To 1: COURTNEY ALBERTO MD, JOSHUA T MD August 04, 2021 23:47
[2021-08-04 23:57] VITALS: BP 121/81
== END 2021-08-04 23:55 | disposition home or self-care (01) ==
LOC: EDUNIT# 21:41 → ER 21:45
DX: U07.1 COVID-19 (principal); I48.0 Paroxysmal atrial fibrillation; Z73.0 Burn-out
CPT/HCPCS: 36415; 80048; 81000; 83735; 84439; 84443; 85025; 93005; 93041

== ENCOUNTER 2021-11-02 14:55 | Emergency (ER) | payer MEDICARE ==
[~2021-11-02] VITALS: Ht 167.7 cm; Wt 49.9 kg
--- NOTE | 2021-11-02 15:13 | ED Cardiac General ---
History of Present Illness General Chief Complaint: Cardiac/General Problems Stated Complaint: AFIB Source: patient Exam Limitations: no limitations History of Present Illness Date Seen by Provider: Nov 02, 2021 Time Seen by Provider: 15:00 Initial Comments Patient is an 81-year-old female who presents to the emergency department today with a chief complaint of palpitations, rapid heart rate knowing she is in A. fib. She is followed by Dr. Frederick at [facility] in [place]. She was recently changed from sotalol to flecainide early this week. She states that the sotalol was not keeping her out of A. fib so they switched it. He mentioned to her putting her in the hospital on Tikosyn for 3 days and possibly an ablation but she wanted to try the flecainide. She has mild shortness of breath minimal nausea. No chest pain. No recent illnesses or COVID concerns. No GI or symptoms. She is on Pradaxa. She had COVID at the end of June. All other review of systems reviewed and negative except as stated Timing/Duration: 4-6 hours Severity: moderate Location: central Activities at Onset: activity (walking) Associated Systoms: Shortness of Air, Weakness Allergies and Home Medications Allergies Coded Allergies: No Known Drug Allergies (Unverified , 05/25/15) Patient Home Medication List Home Medication List Reviewed: Yes Estradiol (Estradiol Tablet) 0.5 Mg Tablet, (Reported) Entered as Reported by: LONNIE MURRAY on 03/15/162355 Levothyroxine Sodium (Levothyroxine Sodium) 100 Mcg Tablet, (Reported) Entered as Reported by: LONNIE MURRAY on 03/15/16 150 Metoprolol Succinate (Metoprolol Succinate) 25 Mg Tab.er.24h, 25 MG PO DAILY Prescribed by: DENITA MCGUIRE on 11/02/21 1702 Review of Systems Review of Systems Constitutional: see HPI EENTM: No Symptoms Reported Respiratory: Shortness of Air, SOA With Exertion Cardiovascular: Palpitations Gastrointestinal: Nausea (mild) Genitourinary: No Symptoms Reported Musculoskeletal: no symptoms reported Skin: no symptoms reported Psychiatric/Neurological: No Symptoms Reported All Other Systems Reviewed Negative Unless Noted: Yes Past Jdrnvnz-Xgtwto-Qlfygk Hx Past Medical History Surgeries: Yes Breast, Cardiac, Hysterectomy, Oophorectomy, Orthopedic, Thyroidectomy, Tubal Ligation Respiratory: No Cardiac: Yes (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 oz. 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 Norm as Tested Skin: Normal Color, Warm/Dry Progress/Results/Core Measures Results/Orders Lab Results Laboratory Tests Test 11/02/21 15:05 Range/Units White Blood Count 7.3 4.3-11.0 10^3/uL Red Blood Count 4.00 3.80-5.11 10^6/uL Hemoglobin 14.0 11.5-16.0 g/dL Hematocrit 41 35-52 % Mean Corpuscular Volume 103 H 80-99 fL Mean Corpuscular Hemoglobin 35 H 25-34 pg Mean Corpuscular Hemoglobin Concent 34 32-36 g/dL Red Cell Distribution Width 13.0 10.0-14.5 % Platelet Count 264 130-400 10^3/uL Mean Platelet Volume 9.4 9.0-12.2 fL Immature Granulocyte % (Auto) 0 % Neutrophils (%) (Auto) 61 42-75 % Lymphocytes (%) (Auto) 30 12-44 % Monocytes (%) (Auto) 7 0-12 % Eosinophils (%) (Auto) 2 0-10 % Basophils (%) (Auto) 0 0-10 % Neutrophils # (Auto) 4.5 1.8-7.8 X 10^3 Lymphocytes # (Auto) 2.2 1.0-4.0 X 10^3 Monocytes # (Auto) 0.5 0.0-1.0 X 10^3 Eosinophils # (Auto) 0.1 0.0-0.3 10^3/uL Basophils # (Auto) 0.0 0.0-0.1 10^3/uL Immature Granulocyte # (Auto) 0.0 0.0-0.1 10^3/uL Prothrombin Time 17.1 H 12.2-14.7 SEC INR Comment 1.4 0.8-1.4 Activated Partial Thromboplast Time 52 H 24-35 SEC Sodium Level 138 135-145 MMOL/L Potassium Level 3.6 3.6-5.0 MMOL/L Chloride Level 100 98-107 MMOL/L Carbon Dioxide Level 26 21-32 MMOL/L Anion Gap 12 5-14 MMOL/L Blood Urea Nitrogen 11 7-18 MG/DL Creatinine 0.86 0.60-1.30 MG/DL Estimat Glomerular Filtration Rate 68 BUN/Creatinine Ratio 13 Glucose Level 108 H 70-105 MG/DL Calcium Level 9.0 8.5-10.1 MG/DL Corrected Calcium 8.5-10.1 MG/DL Magnesium Level 2.0 1.6-2.4 MG/DL Total Bilirubin 0.5 0.1-1.0 MG/DL Aspartate Amino Transf (AST/SGOT) 24 5-34 U/L Alanine Aminotransferase (ALT/SGPT) 20 0-55 U/L Alkaline Phosphatase 76 40-136 U/L Myoglobin 46.9 10.0-92.0 NG/ML Troponin I < 0.028 <0.028 NG/ML Total Protein 7.9 6.4-8.2 GM/DL Albumin 4.6 H 3.2-4.5 GM/DL My Orders Orders - DENITA MCGUIRE MD Ekg Tracing (11/02/21 14:57) Cbc With Automated Diff (11/02/21 15:09) Magnesium (11/02/21 15:09) Chest 1 View, Ap/Pa Only (11/02/21 15:09) Comprehensive Metabolic Panel (11/02/21 15:09) Myoglobin Serum (11/02/21 15:09) Protime With Inr (11/02/21 15:09) Partial Thromboplastin Time (11/02/21 15:09) O2 (11/02/21 15:09) Monitor-Rhythm Ecg Trace Only (11/02/21 15:09) Ed Iv/Invasive Line Start (11/02/21 15:09) Troponin I Jenkins (11/02/21 15:09) Ns Iv 500 Ml (Sodium Chloride 0.9%) (11/02/21 15:15) Diltiazem Injection (Cardizem Injection) (11/02/21 15:45) Ekg Tracing (11/02/21 16:15) Medications Given in ED Current Medications Medications Dose Ordered Sig/Aylin Route Start Time Stop Time Status Last Admin Dose Admin Diltiazem HCl 20 mg ONCE ONCE IVP 11/02/21 15:45 11/02/21 15:46 DC 11/02/21 16:11 20 MG Vital Signs/I&O 11/02/21 11/02/21 15:01 17:22 Temp 36.6 Pulse 128 86 Resp 20 15 B/P (MAP) 161/87 (111) 125/76 Pulse Ox 98 97 Progress Progress Note : Time: 16:59 Progress Note Patient reassessed after labs, imaging. She is now rate controlled 1 hour post administration of 20 mg of IV Cardizem. I discussed the case with Dr. Hills who is on-call for cardiology. He recommends discharge to home not on sotalol but on metoprolol succinate 25 mg daily. He recommends that she keep her follow-up appointment with Dr. Fabian on Friday of next week. Patient is given good return precautions. She verbalized understanding. All questions are sought and answered Initial ECG Impression Date: Nov 02, 2021 Initial ECG Impression Time: 15:05 Initial ECG Rate: 131 Initial ECG Rhythm: A Fib/Flutter Initial ECG Impression: Nonspecific Changes EKG : EKG Time: 16:18 Rate: 79 Rhythm: A Fib/Flutter ECG Comparisson: Changed ECG Impression: Atrial Fibrillation Critical Care Note Critical Care Start Time: 15:00 Stop Time: 17:00 Total Time (minutes) [id number] minutes critical care time in the evaluation and management of this 81-year-old female with patient and rapid ventricular response. Time includes initial evaluation and management, interpretation of the EKG, laboratory studies and imaging. Time includes fluid bolus administration with Cardizem administration as well. Reevaluation, discussion with color straining bag washer on-call as well as the family Departure Impression Primary Impression: Atrial fibrillation with rapid ventricular response Additional Impression: Chronic anticoagulation Disposition: HOME, SELF-CARE Condition: Improved Departure-Patient Inst. Decision time for Depature: 17:01 Referrals: COURTNEY ALBERTO MD (PCP/Family) Primary Care Physician Patient Instructions: Atrial Fibrillation Add. Discharge Instructions: Continue with flecainide as prescribed by Dr. Fabian. We are starting you on a different beta-donlad, metoprolol, once a day at 25 mg. Start this tomorrow. Do not restart the soltalol. Please keep your follow-up appointment with Dr. Fabian on Friday of next week. Return to the emergency department for any new, concerning or emergent complaints. Scripts Metoprolol Succinate (Metoprolol Succinate) 25 Mg Tab.er.24h 25 MG PO DAILY, #14 TAB Prov: DENITA MCGUIRE MD 11/02/21 Copy Copies To 1: COURTNEY ALBERTO MD, KATHRYN M MD Nov 02, 2021 15:13
[2021-11-02] MEDS ORDERED: NS IV 500 ML 500 ML IV SCH (15:15)
[2021-11-02 15:26] LABS: BASOPHILS % (AUTO) 0 % (0-10); EOSINOPHILS # (AUTO) 0.1 10^3/uL (0.0-0.3); EOSINOPHILS % (AUTO) 2 % (0-10); HEMATOCRIT 41 % (35-52); LYMPHOCYTES # (AUTO) 2.2 X 10^3 (1.0-4.0); LYMPHOCYTES % (AUTO) 30 % (12-44); MEAN CORPUSCULAR HEMOGLOBIN 35 pg (25-34); MEAN CORPUSCULAR HGB CONC 34 g/dL (32-36); MEAN CORPUSCULAR VOLUME 103 fL (80-99); MEAN PLATELET VOLUME 9.4 fL (9.0-12.2); MONOCYTES # (AUTO) 0.5 X 10^3 (0.0-1.0); MONOCYTES % (AUTO) 7 % (0-12); NEUTROPHILS # (AUTO) 4.5 X 10^3 (1.8-7.8); NEUTROPHILS % (AUTO) 61 % (42-75); PLATELET COUNT 264 10^3/uL (130-400); WHITE BLOOD COUNT 7.3 10^3/uL (4.3-11.0)
[2021-11-02 15:29] LABS: ALBUMIN 4.6 GM/DL (3.2-4.5)
[2021-11-02 15:30] LABS: CHLORIDE 100 MMOL/L (98-107); POTASSIUM 3.6 MMOL/L (3.6-5.0); SODIUM 138 MMOL/L (135-145)
[2021-11-02 15:32] LABS: GLUCOSE 108 MG/DL (70-105); TOTAL PROTEIN 7.9 GM/DL (6.4-8.2)
[2021-11-02 15:33] LABS: CARBON DIOXIDE 26 MMOL/L (21-32)
[2021-11-02 15:34] LABS: BILIRUBIN,TOTAL 0.5 MG/DL (0.1-1.0)
[2021-11-02 15:35] LABS: INR 1.4 (0.8-1.4); PROTHROMBIN TIME PATIENT 17.1 SEC (12.2-14.7)
[2021-11-02 15:36] LABS: ALKALINE PHOSPHATASE 76 U/L (40-136); CREATININE SERUM 0.86 MG/DL (0.60-1.30); GFR ESTIMATED 68
[2021-11-02 15:37] LABS: BUN/CREATININE RATIO 13
[2021-11-02 15:39] LABS: ALANINE AMINOTRANSFERASE 20 U/L (0-55)
--- NOTE | 2021-11-02 15:52 | Diagnostic Imaging Report ---
INDICATION: Atrial fibrillation. TIME OF EXAM: 3:35 p.m. COMPARISON: Correlation is made with prior chest from 08/02/2020. FINDINGS: Heart is enlarged and stable. Lungs are clear. No infiltrates are seen. There is no effusion or pneumothorax. IMPRESSION: No acute cardiopulmonary process is detected. Dictated by: Dictated on workstation # [id number]
[2021-11-02] MEDS ORDERED: MTP25TSR PO (17:02)
[2021-11-02 17:22] VITALS: BP 125/76
== END 2021-11-02 17:22 | disposition home or self-care (01) ==
LOC: EDUNIT# 14:55 → ER 14:56
DX: I48.20 Chronic atrial fibrillation, unspecified (principal); Z86.16 Personal history of COVID-19; Z98.890 Other specified postprocedural states; Z79.01 Long term (current) use of anticoagulants
CPT/HCPCS: 36415; 71045; 80053; 83735; 83874; 84484; 85025; 85610; 85730; 93005; 93041

== ENCOUNTER 2021-11-03 08:17 | Emergency (ER) | payer MEDICARE ==
[~2021-11-03] VITALS: Ht 167 cm; Wt 49.8 kg
[~2021-11-03 08:17] MED LIST changes: +MTP25TSR PO
--- NOTE | 2021-11-03 08:41 | ED Cardiac General ---
History of Present Illness General Chief Complaint: Cardiac/General Problems Stated Complaint: AFIB Source: patient Exam Limitations: no limitations History of Present Illness Date Seen by Provider: Nov 03, 2021 Time Seen by Provider: 08:41 Initial Comments Preeti is an 81-year-old female who presents to the emergency department today with a chief complaint of rapid heartbeat. She is very anxious about her atrial fibrillation. I saw her yesterday with heart rates in the 140s. She had recently changed from sotalol to flecainide on Friday. She was not on beta- donald with the flecainide. I did give her 1 dose of Cardizem IV 20 mg which brought her heart rate down into the 70s/80s. She was comfortable at discharge. I consulted with Dr. Hills who recommended metoprolol succinate 25 mg daily. She states after she got home last night her heart rate slowly started increasing again and bounced from 100-1 20. This morning she checked it with her iPhone again because she felt palpitations and got a reading of 140s. As she was walking in the ER doors she felt her self convert from the 140s down to 100. She denies chest pain or nausea. No diaphoresis. No bowel or bladder problems. She is currently comfortable at a heart rate from 95-115. She has not had a dose of metoprolol this morning nor has she taken her flecainide. She is considering switching back over to sotalol. We had a discussion about changing over from 1 drug to the other. I advised her that I was not comfortable in advising her to restart her sotalol not knowing the metabolism of the flecainide and the potential for a significant dip in her blood pressure or pulse. She has follow-up scheduled with Dr. Fabian on Friday of this week, actually an EKG in clinic and I advised her to let the nurse who sees her consult with Dr. Fabian about the waste/materials exchange specialist. In the meantime I recommended filling the metoprolol and taking that daily with her flecainide to help control her rate. She seems agreeable although significantly apprehensive. All other review of systems reviewed and negative except as stated. Timing/Duration: 1-3 hours Severity: moderate NTG SL HOSE OPERATOR: No ASA po HOSE OPERATOR: Yes Associated Systoms: Other (palpitations; anxiety) Allergies and Home Medications Allergies Coded Allergies: No Known Drug Allergies (Unverified , 05/25/15) Patient Home Medication List Home Medication List Reviewed: Yes Estradiol (Estradiol Tablet) 0.5 Mg Tablet, (Reported) Entered as Reported by: LONNIE MURRAY on 03/15/16 2356 Levothyroxine Sodium (Levothyroxine Sodium) 100 Mcg Tablet, (Reported) Entered as Reported by: LONNIE MURRAY on 03/15/16 235 Metoprolol Succinate (Metoprolol Succinate) 25 Mg Tab.er.24h, 25 MG PO DAILY Prescribed by: DENITA MCGUIRE on 11/02/21 1702 Review of Systems Review of Systems Constitutional: see HPI EENTM: No Symptoms Reported Respiratory: No Symptoms Reported Cardiovascular: Palpitations Gastrointestinal: No Symptoms Reported Genitourinary: No Symptoms Reported Musculoskeletal: no symptoms reported Skin: no symptoms reported Psychiatric/Neurological: Anxiety All Other Systems Reviewed Negative Unless Noted: Yes Past Sbuscgy-Dwdehh-Ulissi Hx Past Medical History Surgeries: Yes Breast, Cardiac, Hysterectomy, Oophorectomy, Orthopedic, Thyroidectomy, Tubal L igation Respiratory: No Cardiac: Yes (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 oz. 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 Norm as Tested Skin: Normal Color, Warm/Dry Progress/Results/Core Measures Results/Orders My Orders Orders - DENITA MCGUIRE MD Ekg Tracing (11/03/21 08:20) Vital Signs/I&O 11/03/21 08:20 Temp 36.3 Pulse 101 Resp 22 B/P (MAP) 127/94 (105) Pulse Ox 97 Initial ECG Impression Date: Nov 03, 2021 Initial ECG Impression Time: 08:45 Initial ECG Rate: 94 Initial ECG Rhythm: A Fib/Flutter Initial ECG Impression: Atrial Fibrillation Departure Impression Primary Impression: Atrial fibrillation Qualified Codes: I48.11 - Longstanding persistent atrial fibrillation Additional Impression: Anxiety about health Disposition: 01 HOME, SELF-CARE Condition: Stable Departure-Patient Inst. Decision time for Depature: 08:56 Referrals: COURTNEY ALBERTO MD (PCP/Family) Primary Care Physician Patient Instructions: Atrial Fibrillation and Atrial Flutter ED Add. Discharge Instructions: Continue your flecainide daily as prescribed until you follow-up on Friday and Dr. Fabian's clinic. Start the metoprolol once daily. You have been given a dose today. If you develop chest pain, shortness of breath, nausea/vomiting or sweating with your palpitations please come back to the emergency department for reevaluation. Follow-up with your primary care doctor as scheduled. Copy Copies To 1: COURTNEY ALBERTO MD, KATHRYN M MD Nov 03, 2021 08:41
[2021-11-03 09:26] VITALS: BP 146/92
== END 2021-11-03 09:26 | disposition home or self-care (01) ==
LOC: EDUNIT# 08:17 → ER 08:19
DX: I48.91 Unspecified atrial fibrillation (principal); F41.9 Anxiety disorder, unspecified; Z98.890 Other specified postprocedural states
CPT/HCPCS: 93005

== ENCOUNTER → 2021-12-22 | Outpatient (CLI) | payer MEDICARE ==
--- NOTE | 2021-12-22 15:53 | Diagnostic Imaging Report ---
EXAMINATION: Chest (PA and lateral). CLINICAL INDICATION: 81-year-old female, shortness of breath. COMPARISON: Chest radiograph November 02, 2021. FINDINGS: Heart size and mediastinal contours are unremarkable. There is no identified pneumothorax. There is no pleural effusion. There is no identified focal airspace consolidation. IMPRESSION: No identified acute cardiopulmonary abnormality. Dictated by: Dictated on workstation # [id number]
[2021-12-22 16:03] LABS: BASOPHILS % (AUTO) 0 % (0-10); EOSINOPHILS # (AUTO) 0.1 10^3/uL (0.0-0.3); EOSINOPHILS % (AUTO) 1 % (0-10); HEMATOCRIT 35 % (35-52); HEMOGLOBIN 11.9 g/dL (11.5-16.0); LYMPHOCYTES # (AUTO) 0.8 X 10^3 (1.0-4.0); LYMPHOCYTES % (AUTO) 8 % (12-44); MEAN CORPUSCULAR HEMOGLOBIN 35 pg (25-34); MEAN CORPUSCULAR HGB CONC 34 g/dL (32-36); MEAN CORPUSCULAR VOLUME 102 fL (80-99); MEAN PLATELET VOLUME 9.3 fL (9.0-12.2); MONOCYTES # (AUTO) 0.5 X 10^3 (0.0-1.0); MONOCYTES % (AUTO) 5 % (0-12); NEUTROPHILS # (AUTO) 9.6 X 10^3 (1.8-7.8); NEUTROPHILS % (AUTO) 87 % (42-75); PLATELET COUNT 200 10^3/uL (130-400)
[2021-12-22 16:19] LABS: ALBUMIN 4.3 GM/DL (3.2-4.5)
[2021-12-22 16:20] LABS: POTASSIUM 3.8 MMOL/L (3.6-5.0)
[2021-12-22 16:22] LABS: TOTAL PROTEIN 7.3 GM/DL (6.4-8.2)
[2021-12-22 16:24] LABS: BILIRUBIN,TOTAL 1.2 MG/DL (0.1-1.0)
[2021-12-22 16:26] LABS: CREATININE SERUM 0.78 MG/DL (0.60-1.30)
[2021-12-22 16:29] LABS: BAND NEUTROPHILS 0 %; BASOPHILS % (MANUAL) 0 %; EOSINOPHILS % (MANUAL) 1 %; LYMPHOCYTES % (MANUAL) 7 %; MONOCYTES % (MANUAL) 6 %; NEUTROPHILS % (MANUAL) 86 %; RBC MORPH NORMAL
== END ==
LOC: RAD 15:22
PROVIDERS: ATTEND Nurse Practitioner Family
DX: Z48.89 Encounter for other specified surgical aftercare (principal); R06.02 Shortness of breath
CPT/HCPCS: 36415; 71046; 80053; 85007; 85027

== ENCOUNTER 2021-12-26 15:43 | Emergency (ER) | payer MEDICARE ==
[~2021-12-26] VITALS: Ht 167 cm; Wt 49.1 kg
[2021-12-26 17:50] LABS: BASOPHILS % (AUTO) 1 % (0-10); EOSINOPHILS # (AUTO) 0.1 10^3/uL (0.0-0.3); EOSINOPHILS % (AUTO) 3 % (0-10); HEMATOCRIT 37 % (35-52); HEMOGLOBIN 12.7 g/dL (11.5-16.0); LYMPHOCYTES % (AUTO) 21 % (12-44); MEAN CORPUSCULAR HEMOGLOBIN 35 pg (25-34); MEAN CORPUSCULAR HGB CONC 35 g/dL (32-36); MEAN CORPUSCULAR VOLUME 101 fL (80-99); MEAN PLATELET VOLUME 8.9 fL (9.0-12.2); MONOCYTES # (AUTO) 0.4 10^3/uL (0.0-1.0); MONOCYTES % (AUTO) 8 % (0-12); NEUTROPHILS # (AUTO) 3.1 10^3/uL (1.8-7.8); NEUTROPHILS % (AUTO) 67 % (42-75); PLATELET COUNT 254 10^3/uL (130-400); WHITE BLOOD COUNT 4.6 10^3/uL (4.3-11.0)
--- NOTE | 2021-12-26 17:50 | Diagnostic Imaging Report ---
HISTORY: Shortness of air COMPARISON: 11/02/2021 TECHNIQUE: Frontal view of the chest. FINDINGS: Lung volumes are large. There is scarring in the lung apices. No consolidation is seen. The cardiac silhouette is mildly large. There is no pleural effusion or pneumothorax. IMPRESSION: 1. Findings of chronic obstructive disease, with no acute pulmonary abnormalities seen. Dictated by: Dictated on workstation # [id number]
[2021-12-26 18:00] LABS: BILIRUBIN,URINE NEGATIVE (NEGATIVE); CLARITY,URINE CLEAR; COLOR,URINE YELLOW; GLUCOSE, URINE (UA) NEGATIVE (NEGATIVE); KETONES,URINE NEGATIVE (NEGATIVE); LEUKOCYTE ESTERASE ,URINE NEGATIVE (NEGATIVE); NITRITE,URINE NEGATIVE (NEGATIVE); PROTEIN,URINE NEGATIVE (NEGATIVE)
[2021-12-26 18:10] LABS: BACTERIA,URINE NEGATIVE /HPF; SQUAMOUS EPITHELIAL CELL,UR RARE /HPF
[2021-12-26 18:20] LABS: ALBUMIN 4.4 GM/DL (3.2-4.5); POTASSIUM 4.1 MMOL/L (3.6-5.0)
[2021-12-26 18:21] LABS: CALCIUM 9.2 MG/DL (8.5-10.1)
[2021-12-26 18:22] LABS: TOTAL PROTEIN 7.2 GM/DL (6.4-8.2)
[2021-12-26 18:24] LABS: BILIRUBIN,TOTAL 0.7 MG/DL (0.1-1.0)
[2021-12-26 18:26] LABS: CREATININE SERUM 0.79 MG/DL (0.60-1.30)
[2021-12-26] MEDS ORDERED: RX-ALBUTEROL INHALER 8.5 GM HFA (PROAIR) IH STA (19:00)
--- NOTE | 2021-12-26 19:41 | ED Cough/URI ---
General Chief Complaint: Respiratory Problems Stated Complaint: SOA Nursing Triage Note: STATES SHE HAD AN ABLASION DONE LAST FRI AND HAS BEEN SOA WHEN SHE LAYS DOWN AND TALKS SINCE. TRIED TO CALL HER DR BUT HE IS ON VACATION. Source: patient Exam Limitations: no limitations Allergies and Home Medications Allergies Coded Allergies: No Known Drug Allergies (Unverified , 05/25/15) Patient Home Medication List Estradiol (Estradiol Tablet) 0.5 Mg Tablet, (Reported) Entered as Reported by: LONNIE MURRAY on 03/15/16 2356 Levothyroxine Sodium (Levothyroxine Sodium) 100 Mcg Tablet, (Reported) Entered as Reported by: LONNIE MURRAY on 03/15/16 2356 Metoprolol Succinate (Metoprolol Succinate) 25 Mg Tab.er.24h, 25 MG PO DAILY Prescribed by: DENITA MCGUIRE on 11/02/21 1702 Past Pbgxhxr-Uyvlhi-Eszmcd Hx Patient Social History Tobacco Use?: No Substance use?: No Alcohol Frequency: Rarely Immunizations Up To Date Second COVID19 Vaccination Fredrick: UNKNOWN COVID19 Vaccine Auto Wash Buffer: UNKNONWN Past Medical History Surgery/Hospitalization HX: AFIB Surgeries: Yes Breast, Cardiac, Hysterectomy, Oophorectomy, Orthopedic, Thyroidectomy, Tubal Ligation Respiratory: No Cardiac: Yes (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 oz. 58.972804xx; 17.00 BMI Method:Estimated Progress/Results/Core Measures Suspected Sepsis SIRS Temperature: Pulse: 79 Respiratory Rate: 16 Laboratory Tests 12/26/21 17:40: White Blood Count 4.6 Blood Pressure 173 /99 Mean: 123 Laboratory Tests 12/26/21 17:40: Creatinine 0.79, Platelet Count 254, Total Bilirubin 0.7 Results/Orders Lab Results Laboratory Tests Test 12/26/21 17:40 12/26/21 17:50 Range/Units White Blood Count 4.6 4.3-11.0 10^3/uL Red Blood Count 3.66 L 3.80-5.11 10^6/uL Hemoglobin 12.7 11.5-16.0 g/dL Hematocrit 37 35-52 % Mean Corpuscular Volume 101 H 80-99 fL Mean Corpuscular Hemoglobin 35 H 25-34 pg Mean Corpuscular Hemoglobin Concent 35 32-36 g/dL Red Cell Distribution Width 12.7 10.0-14.5 % Platelet Count 254 130-400 10^3/uL Mean Platelet Volume 8.9 L 9.0-12.2 fL Immature Granulocyte % (Auto) 0 % Neutrophils (%) (Auto) 67 42-75 % Lymphocytes (%) (Auto) 21 12-44 % Monocytes (%) (Auto) 8 0-12 % Eosinophils (%) (Auto) 3 0-10 % Basophils (%) (Auto) 1 0-10 % Neutrophils # (Auto) 3.1 1.8-7.8 10^3/uL Lymphocytes # (Auto) 1.0 1.0-4.0 10^3/uL Monocytes # (Auto) 0.4 0.0-1.0 10^3/uL Eosinophils # (Auto) 0.1 0.0-0.3 10^3/uL Basophils # (Auto) 0.0 0.0-0.1 10^3/uL Immature Granulocyte # (Auto) 0.0 0.0-0.1 10^3/uL D-Dimer 0.49 0.00-0.49 UG/ML Sodium Level 137 135-145 MMOL/L Potassium Level 4.1 3.6-5.0 MMOL/L Chloride Level 99 98-107 MMOL/L Carbon Dioxide Level 29 21-32 MMOL/L Anion Gap 9 5-14 MMOL/L Blood Urea Nitrogen 18 7-18 MG/DL Creatinine 0.79 0.60-1.30 MG/DL Estimat Glomerular Filtration Rate 76 BUN/Creatinine Ratio 23 Glucose Level 100 70-105 MG/DL Calcium Level 9.2 8.5-10.1 MG/DL Corrected Calcium 8.9 8.5-10.1 MG/DL Total Bilirubin 0.7 0.1-1.0 MG/DL Aspartate Amino Transf (AST/SGOT) 23 5-34 U/L Alanine Aminotransferase (ALT/SGPT) 24 0-55 U/L Alkaline Phosphatase 83 40-136 U/L Troponin I 0.478 *H <0.028 NG/ML B-Type Natriuretic Peptide 65.4 <100.0 PG/ML Total Protein 7.2 6.4-8.2 GM/DL Albumin 4.4 3.2-4.5 GM/DL Urine Color YELLOW Urine Clarity CLEAR Urine pH 6.0 5-9 Urine Specific [place] <=1.005 1.016-1.022 Urine Protein NEGATIVE NEGATIVE Urine Glucose (UA) NEGATIVE NEGATIVE Urine Ketones NEGATIVE NEGATIVE Urine Nitrite NEGATIVE NEGATIVE Urine Bilirubin NEGATIVE NEGATIVE Urine Urobilinogen 0.2 < = 1.0 MG/DL Urine Leukocyte Esterase NEGATIVE NEGATIVE Urine RBC (Auto) TRACE-I H NEGATIVE Urine RBC NONE /HPF Urine WBC NONE /HPF Urine Squamous Epithelial Cells RARE /HPF Urine Crystals NONE /LPF Urine Bacteria NEGATIVE /HPF Urine Casts NONE /LPF Urine Mucus NEGATIVE /LPF Urine Culture Indicated NO My Orders Orders - MINERVA MCMILLAN BOATBUILDER WOOD Ekg Tracing (12/26/21 16:04) Fibrin Degradation Products (12/26/21 17:15) Cbc With Automated Diff (12/26/21 17:15) Comprehensive Metabolic Panel (12/26/21 17:15) Ua Culture If Indicated (12/26/21 17:15) Bnp [place] (12/26/21 17:15) Chest 1 View, Ap/Pa Only (12/26/21 17:15) Troponin I [place] (12/26/21 17:18) Rx-Albuterol Inhaler (Rx-Ventolin Hfa In (12/26/21 19:00) Vital Signs/I&O 12/26/21 12/26/21 15:45 17:01 Temp 36.5 Pulse 79 Resp 16 B/P (MAP) 173/99 (123) Pulse Ox 97 O2 Delivery Room Air Room Air Capillary Refill : Less Than 3 Seconds Blood Pressure Mean: 123 Departure Impression Primary Impression: Orthopnea Disposition: 01 HOME, SELF-CARE Condition: Improved Departure-Patient Inst. Decision time for Depature: 19:40 Referrals: COURTNEY ALBERTO MD (PCP/Family) Primary Care Physician Patient Instructions: Shortness of Breath (Dyspnea) (DC) Add. Discharge Instructions: Plan: 1. Have your echocardiogram completed tomorrow as previously ordered by your handle bender. 2. You can use albuterol inhaler 2 puffs every 4 hours as needed for shortness of breath. 3. You can elevate your head with pillows or a wedge to help improve shortness of breath when lying flat. 4. Return to the ER if you have any new, concerning, worsening symptoms. 5. I recommend discussing having a PFT with your primary care provider due to your persistent symptoms since COVID. All discharge instructions reviewed with patient and/or family. Voiced understanding. MINERVA MCMILLAN [employer]ATBUIL[employer] WOOD Dec 26, 2021 19:41
[2021-12-26 19:43] VITALS: BP 151/93
== END 2021-12-26 19:43 | disposition home or self-care (01) ==
LOC: EDUNIT# 15:43 → ER 15:45
DX: R06.01 Orthopnea (principal)
CPT/HCPCS: 36415; 71045; 80053; 81000; 83880; 84484; 85025; 85379; 93005

== ENCOUNTER → 2022-01-08 | Outpatient (CLI) | payer MEDICARE ==
[~2022-01-08] MED LIST changes: +RT-ALBUTEROL SULF 2.5 MG/3 ML PRE-MIX VIAL INH ONE
== END ==
LOC: RT 13:00
PROVIDERS: ATTEND Allergy & Immunology
DX: R06.02 Shortness of breath (principal)
CPT/HCPCS: 94060; 94621; 94726; 94729

== ENCOUNTER 2022-09-15 17:15 | Emergency (ER) | payer MEDICARE ==
[~2022-09-15] VITALS: Ht 167.7 cm; Wt 50.0 kg
[~2022-09-15 17:15] MED LIST changes: -RT-ALBUTEROL SULF 2.5 MG/3 ML PRE-MIX VIAL INH ONE
[2022-09-15 17:52] LABS: BASOPHILS # (AUTO) 0.1 10^3/uL (0.0-0.1); BASOPHILS % (AUTO) 1 % (0-10); EOSINOPHILS # (AUTO) 0.1 10^3/uL (0.0-0.3); EOSINOPHILS % (AUTO) 2 % (0-10); HEMATOCRIT 44 % (35-52); LYMPHOCYTES # (AUTO) 1.5 10^3/uL (1.0-4.0); LYMPHOCYTES % (AUTO) 25 % (12-44); MEAN CORPUSCULAR HEMOGLOBIN 33 pg (25-34); MEAN CORPUSCULAR HGB CONC 34 g/dL (32-36); MEAN CORPUSCULAR VOLUME 99 fL (80-99); MEAN PLATELET VOLUME 9.7 fL (9.0-12.2); MONOCYTES # (AUTO) 0.4 10^3/uL (0.0-1.0); MONOCYTES % (AUTO) 7 % (0-12); NEUTROPHILS # (AUTO) 3.7 10^3/uL (1.8-7.8); NEUTROPHILS % (AUTO) 64 % (42-75); PLATELET COUNT 252 10^3/uL (130-400); WHITE BLOOD COUNT 5.8 10^3/uL (4.3-11.0)
[2022-09-15 17:57] LABS: INR 1.1 (0.8-1.4); PROTHROMBIN TIME PATIENT 14.2 SEC (12.2-14.7)
[2022-09-15 17:58] LABS: ALBUMIN 4.7 GM/DL (3.2-4.5)
--- NOTE | 2022-09-15 17:58 | ED Cardiac General ---
History of Present Illness General Chief Complaint: Cardiac/General Problems Stated Complaint: AFIB/HIGH BLOOD PRESSURE Nursing Triage Note: PT AMB TO ED BY POV WITH C/O AFIB AND HTN. PT REPORTS SHE FELT A LITTLE DIZZY THIS AFTERNOON AND WAS IN AFIB ACCORDING TO AN AT HOME MONITOR. PT HAS HX AFIB, HAD AN ABLATION IN NOV 2021 AND HAS NOT HAD AFIB SINCE. PT WENT TO [facility] WALK IN, WAS TOLD SHE WAS HTN AND RECOMMENDED TO COME TO ED. DENIES CP OR SOB. Source: patient Exam Limitations: no limitations History of Present Illness Date Seen by Provider: Sep 15, 2022 Time Seen by Provider: 17:29 Initial Comments 82-year-old female presents to the ER for atrial fibrillation. She states that she has a history of atrial fibrillation, she had a cryoablation in November and went approximately 6 months without being in atrial fibrillation. She states that over the last month she has been occasionally going into atrial fibrillation. She states that it normally lasts a few hours and sometimes into the next day. She states that today she knew she was in atrial fibrillation because did not feel well, she used a cardio mobile negro which told her she was in atrial fibrillation. She also reports feeling lightheaded and palpitations. Denies chest pain and shortness of air. She is also found to be hypertensive, patient denies history of hypertension. She currently does not take any medications for rate control. She does take Eliquis. She states that the main reason she came in was because her stonecutter apprentice hand wanted an EKG the next time she was in atrial fibrillation. Allergies and Home Medications Allergies Coded Allergies: No Known Drug Allergies (Unverified , 05/25/15) Patient Home Medication List Home Medication List Reviewed: Yes Estradiol (Estradiol Tablet) 0.5 Mg Tablet, (Reported) Entered as Reported by: LONNIE MURRAY on 03/15/162355 Levothyroxine Sodium (Levothyroxine Sodium) 100 Mcg Tablet, (Reported) Entered as Reported by: LONNIE MURRAY on 03/15/16 6578 Metoprolol Succinate (Metoprolol Succinate) 25 Mg Tab.er.24h, 25 MG PO DAILY Prescribed by: DENITA MCGUIRE on 11/02/21 1702 Metoprolol Succinate (Metoprolol Succinate) 50 Mg Tab.er.24h, 50 MG PO DAILY Prescribed by: Shi Celeste on 09/15/22 1950 Review of Systems Review of Systems Constitutional: see HPI Past Bytqyda-Nspnij-Ttbmcc Hx Patient Social History Tobacco Use?: No Use of E-Cig and/or Vaping dev: No Substance use?: No Alcohol Use?: Yes Alcohol Frequency: Couple times a week Pt feels they are or have been: No Immunizations Up To Date Influenza Vaccine Up-to-Date: Yes; Up-to-Date First/Initial COVID19 Vaccinat: X2 Second COVID19 Vaccination Fredrick: X2 Past Medical History Surgery/Hospitalization HX: RA, AFIB, CARDIAC ABLATION NOV 2021 Surgeries: Yes Breast, Cardiac, Hysterectomy, Oophorectomy, Orthopedic, Thyroidectomy, Tubal Ligation Respiratory: No Cardiac: Yes (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) Atrial Fibrillation, Hypertension, Irregular Heartbeat, Palpitations Neurological: No 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 oz. 58.767121tg; 17.00 BMI Method:Estimated General Appearance: No Apparent Distress, WD/WN Neck: Normal Inspection, Supple Respiratory: Lungs Clear, Normal Breath Sounds, No Respiratory Distress Cardiovascular: Irregularly Irregular Extremity: Normal Inspection, Normal Range of Motion Neurologic/Psychiatric: Alert, Normal Mood/Affect Skin: Normal Color, Warm/Dry Progress/Results/Core Measures Results/Orders Lab Results Laboratory Tests Test 09/15/22 17:30 Range/Units White Blood Count 5.8 4.3-11.0 10^3/uL Red Blood Count 4.49 3.80-5.11 10^6/uL Hemoglobin 15.0 11.5-16.0 g/dL Hematocrit 44 35-52 % Mean Corpuscular Volume 99 80-99 fL Mean Corpuscular Hemoglobin 33 25-34 pg Mean Corpuscular Hemoglobin Concent 34 32-36 g/dL Red Cell Distribution Width 13.2 10.0-14.5 % Platelet Count 252 130-400 10^3/uL Mean Platelet Volume 9.7 9.0-12.2 fL Immature Granulocyte % (Auto) 1 % Neutrophils (%) (Auto) 64 42-75 % Lymphocytes (%) (Auto) 25 12-44 % Monocytes (%) (Auto) 7 0-12 % Eosinophils (%) (Auto) 2 0-10 % Basophils (%) (Auto) 1 0-10 % Neutrophils # (Auto) 3.7 1.8-7.8 10^3/uL Lymphocytes # (Auto) 1.5 1.0-4.0 10^3/uL Monocytes # (Auto) 0.4 0.0-1.0 10^3/uL Eosinophils # (Auto) 0.1 0.0-0.3 10^3/uL Basophils # (Auto) 0.1 0.0-0.1 10^3/uL Immature Granulocyte # (Auto) 0.0 0.0-0.1 10^3/uL Prothrombin Time 14.2 12.2-14.7 SEC INR Comment 1.1 0.8-1.4 Activated Partial Thromboplast Time 34 24-35 SEC Sodium Level 138 135-145 MMOL/L Potassium Level 3.7 3.6-5.0 MMOL/L Chloride Level 103 98-107 MMOL/L Carbon Dioxide Level 23 21-32 MMOL/L Anion Gap 12 5-14 MMOL/L Blood Urea Nitrogen 31 H 7-18 MG/DL Creatinine 0.84 0.60-1.30 MG/DL Estimat Glomerular Filtration Rate 70 BUN/Creatinine Ratio 37 Glucose Level 109 H 70-105 MG/DL Calcium Level 9.7 8.5-10.1 MG/DL Corrected Calcium 8.5-10.1 MG/DL Magnesium Level 2.1 1.6-2.4 MG/DL Total Bilirubin 0.3 0.1-1.0 MG/DL Aspartate Amino Transf (AST/SGOT) 30 5-34 U/L Alanine Aminotransferase (ALT/SGPT) 20 0-55 U/L Alkaline Phosphatase 132 40-136 U/L Total Protein 8.4 H 6.4-8.2 GM/DL Albumin 4.7 H 3.2-4.5 GM/DL My Puneet Teixeira - SHI CELESTE APRN Ekg Tracing (09/15/22 17:29) Cbc With Automated Diff (09/15/22 17:47) Magnesium (09/15/22 17:47) Comprehensive Metabolic Panel (09/15/22 17:47) Protime With Inr (09/15/22 17:47) Partial Thromboplastin Time (09/15/22 17:47) Monitor-Rhythm Ecg Trace Only (09/15/22 17:47) Ed Iv/Invasive Line Start (09/15/22 17:47) Diltiazem Injection (Cardizem Injection) (09/15/22 18:00) Ns Iv 1000 Ml (Sodium Chloride 0.9%) (09/15/22 18:15) Metoprolol Succinate (Xl) Tab (Toprol Xl (09/15/22 19:00) Medications Given in ED Vital Signs/I&O 09/15/22 09/15/22 09/15/22 17:22 18:07 20:00 Temp 36.6 Pulse 114 104 66 Resp 15 16 B/P (MAP) 172/121 (138) 146/107 156/87 Pulse Ox 96 95 O2 Delivery Room Air Room Air Blood Pressure Mean: 138 Progress Progress Note : Progress Note Patient seen and evaluated, resting comfortably in bed, no acute distress. Heart rate from 100 to 133. Based on exam and symptoms, work-up initiated including CBC, CMP, magnesium, coags, EKG. Cardizem IV push ordered. Labs reviewed. CBC grossly normal. CMP shows elevated BUN 31, normal creatinine 0.84, GFR 70. Glucose 109, total protein 8.4, albumin 4.7. Coags within normal limits. 1 L of IV fluids ordered for elevated BUN. Heart rate improved to the 70s after Cardizem push dose. Blood pressure also improved to 130s systolic. I called and spoke with Dr. Kramer, stonecutter apprentice hand, at [facility] since patient's primary stonecutter apprentice hand is Dr. Courtney Edwards at [facility]. He suggested starting patient on metoprolol succinate 50 mg once a day and to have her follow-up with her primary stonecutter apprentice hand. Will give the first dose of metoprolol here and discharged with prescription. Results discussed with patient. Patient instructed to follow-up with her stonecutter apprentice hand. Discharge instructions and return precautions provided. Will give patient a copy of her EKG to take to her stonecutter apprentice hand as well as her lab work. Initial ECG Impression Date: Sep 15, 2022 Initial ECG Impression Time: 17:33 Initial ECG Rate: 107 Initial ECG Rhythm: A Fib/Flutter Initial ECG Intervals: Normal Initial ECG Impression: Atrial Fibrillation w/RVR Initial ECG Comparisson: Unchanged Departure Impression Primary Impression: Atrial fibrillation Qualified Codes: I48.91 - Unspecified atrial fibrillation Disposition: HOME, SELF-CARE Condition: Stable Departure-Patient Inst. Decision time for Depature: 19:49 Referrals: COURTNEY ALBERTO MD (PCP/Family) Primary Care Physician Patient Instructions: Atrial fibrillation Add. Discharge Instructions: Take metoprolol [address] Quigley's office tomorrow to schedule a follow-up appointment for this week. Return for chest pain, shortness of air, dizziness, or any other new, concerning, or worsening symptoms. All discharge instructions reviewed with patient and/or family. Voiced understanding. Scripts Metoprolol Succinate (Metoprolol Succinate) 50 Mg Tab.er.24h 50 MG PO DAILY for 30 Days, #30 TAB 0 Refills Prov: SHI CELESTE APRN 09/15/22 SHI CELESTE APRN Sep 15, 2022 17:57
[2022-09-15 17:59] LABS: CHLORIDE 103 MMOL/L (98-107); POTASSIUM 3.7 MMOL/L (3.6-5.0); SODIUM 138 MMOL/L (135-145)
[2022-09-15 18:00] LABS: CALCIUM 9.7 MG/DL (8.5-10.1)
[2022-09-15 18:01] LABS: GLUCOSE 109 MG/DL (70-105); TOTAL PROTEIN 8.4 GM/DL (6.4-8.2)
[2022-09-15 18:02] LABS: CARBON DIOXIDE 23 MMOL/L (21-32)
[2022-09-15 18:03] LABS: BILIRUBIN,TOTAL 0.3 MG/DL (0.1-1.0)
[2022-09-15 18:04] LABS: ALKALINE PHOSPHATASE 132 U/L (40-136)
[2022-09-15 18:05] LABS: CREATININE SERUM 0.84 MG/DL (0.60-1.30); GFR ESTIMATED 70
[2022-09-15 18:06] LABS: BUN/CREATININE RATIO 37
[2022-09-15 18:07] LABS: ALANINE AMINOTRANSFERASE 20 U/L (0-55); MAGNESIUM 2.1 MG/DL (1.6-2.4)
[2022-09-15] MEDS ORDERED: NS IV 1000 ML 1,000 ML IV SCH (18:15)
[2022-09-15] MEDS ORDERED: meTOproloL SUCCINATE 50 MG (TOPROL XL) TAB PO SCH (19:00)
[2022-09-15] MEDS ORDERED: METO50TA7 PO (19:50)
[2022-09-15 20:00] VITALS: BP 156/87
== END 2022-09-15 20:00 | disposition home or self-care (01) ==
LOC: EDUNIT# 17:15 → ER 17:18
DX: I48.91 Unspecified atrial fibrillation (principal); Z79.02 Long term (current) use of antithrombotics/antiplatelets
CPT/HCPCS: 36415; 80053; 83735; 85025; 85610; 85730; 93005; 93041

== ENCOUNTER → 2022-09-27 | Outpatient (CLI) | payer MEDICARE ==
[~2022-09-27] MED LIST changes: +METO50TA7 PO
== END ==
LOC: CARD 10:31
PROVIDERS: ATTEND Internal Medicine Cardiovascular Disease
DX: I48.91 Unspecified atrial fibrillation (principal)
CPT/HCPCS: 93005